=== PATIENT | male | born 1960 | race Caucasian/White ===

== ENCOUNTER 2024-10-05 11:00 | Outpatient (AMB) | payer OTHER, SELFPAY ==
--- NOTE | 2024-10-05 11:20 | MHC.OFFVIS ---
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 On he presented to [facility] and was transferred to [facility] where he underwent urgent cardiac catheterization showing severe PDA stenosis which was treated with drug-eluting stent. While he was in [place] he was diagnosed with atrial fibrillation and has been in persistent atrial fibrillation since discharge. He was started on Eliquis and metoprolol succinate 25 mg daily. He is on Plavix for the recent drug-eluting stent placement. He is saying that he was short of breath and fatigued for few weeks before he presented with ACS. When he presented with acute coronary syndrome he had chest discomfort as well as arm discomfort. He has not had any further symptoms since he left the hospital. He does get short of breath with activities and has some fatigue. I think these symptoms are linked with atrial fibrillation. He does not have any palpitations. Taking medications regularly. No bleeding concerns. He was a smoker but since the heart attack he has stopped smoking. [facility] Medical History (Updated 10/05/24 @ 12:30 by Juan Borrero MD) NSTEMI (non-ST elevated myocardial infarction) Family History (Updated 10/05/24 @ 11:28 by Mindy Meza CMA) Mother High blood pressure Paroxysmal A-fib Father No problems noted. Social History (Updated 10/05/24 @ 11:30 by Mindy Meza CMA) Alcohol intake: never Tobacco use type: Cigarette Smoked in Last 30 Days: No e-Cigarette/Vaping Use: Former Use Patient Given Instructions on How to Stop Smoking: Yes Date Education Initiated: 09/19/24 Review of Systems Const Denies chills, Denies fatigue, Denies fever(s), Denies frequent falls, Denies weakness, Denies weight gain and Denies weight loss ENT Denies dizziness Card Denies chest pain, Denies leg edema, Denies lightheadedness, Denies palpitations, Denies dyspnea, Denies dyspnea on exertion and Denies orthopnea Resp Denies cough, Denies dyspnea and Denies dyspnea on exertion GI Denies bloating and Denies change in bowel habits Musc Denies muscle weakness, Denies numbness and Denies tingling Neuro Denies dizziness, Denies frequent falls, Denies numbness, Denies tingling and Denies weakness Endo Denies fatigue and Denies palpitations Physical Exam Vital Signs: Last Vital Signs Pulse 90 10/05/24 11:23 BP 120/70 10/05/24 11:23 BMI result Body Mass Index 37.5 GENERAL APPEARANCE: in no acute distress, pleasant. NECK: no carotid bruit, no jugular venous distention. SKIN: no suspicious lesions, warm and dry. HEART: no murmurs, irregular rate and rhythm. LUNGS: clear to auscultation bilaterally. ABDOMEN: soft, nontender. EXTREMITIES: no edema. PERIPHERAL PULSES: equal. NEUROLOGIC: No gross deficits, AAO X 3 Office Procedures EKG Details: Atrial fibrillation 90 beats per minute, normal axis, QTC 477 milliseconds. [id number], Complete Assessment & Plan Assessment & Plan (1) Persistent atrial fibrillation: Code(s): I48.19 - Other persistent atrial fibrillation Category: Medical (2) NSTEMI (non-ST elevated myocardial infarction): Code(s): I21.4 - Non-ST elevation (NSTEMI) myocardial infarction Category: Medical Plan Pleasant 63 gentleman who is here for 1st office visit. September 23 he was taken for cardiac catheterization by Dr. Mireles. He had drug-eluting stents placed to the PDA. Other blood vessels did not have any significant disease. He was on aspirin and Plavix and given the fact that he had atrial fibrillation which was a new diagnosis aspirin was stopped and he was discharged on Plavix and metoprolol succinate 25 mg daily. He has stopped smoking. He has some fatigue and dyspnea with activities which is a new symptom over the last month. I think these symptoms are due to atrial fibrillation. We discussed about management of atrial fibrillation. After discussion we have decided to perform cardioversion. We will arrange it in 1 month. Increasing metoprolol succinate to 25 mg twice a day. We will continue apixaban and Plavix uninterrupted. Follow-up in 3-4 months. Thank you for allowing me to participate in the care of your patient. Please feel free to contact me if you have any questions. Medications: New metoprolol succinate ER 25 mg PO BID 120 tabs 3RF Coding Level of Care Code New Pt Level 5 (99819) Diagnoses Persistent atrial fibrillation I48.19 NSTEMI (non-ST elevated myocardial infarction) I21.4 CPT Codes EKG - CPT: 88364-[id number], Complete ([id number])
[2024-10-05 11:23] VITALS: BP 120/70; PULSE 90; BMI 37.5
--- OUTSIDE RECORDS SUMMARY | 2024-10-06 01:21 | XMS_ITS | Continuity of Care Document ---
Author Organization [facility] ter Address [address] [place] [id number] Care Team Providers Care Auditing Manager Name Role Phone Brando More MD Primary Care Physician [phone] [id number] Date(s): 09/23/24 - 09/24/[address] [address] Discharge Disposition: A-D/C Home Attending Physician: Sofi Brush MD Admitting Physician: Boaz Duvall DO Referring Physician: Boaz Duvall DO Encounter Type: Disch IP Allergies, Adverse Reactions, Alerts Substance Criticality Severity Reaction Reaction Severity Status Bee Stings Active [place] Active Onions Active Medications apixaban 5 mg oral tablet = 5 mg, By Mouth, 2 times a day, # 60 tablet, 0 Refills, Maintenance, 09/24/24 8:03:00 AM EST, Tablet, [facility], Partial fill upon patient request if the prescription is for a schedule II opioid drug., 186, cm, 09/23/24 19:57:00 EST, Height, 127.2, kg, 09/23/24 14:31:00 EST, Dry Weight Start Date: 09/24/24 Status: Ordered Quantity: 60.0 Unit: tablet Repeat number: 1 atorvastatin 80 mg oral tablet = 80 mg, By Mouth, Daily at bedtime, # 30 tablet, 0 Refills, Maintenance, 09/24/24 10:50:00 AM EST,Tablet, [facility], Partial fill upon patient request if the prescription is for a schedule II opioid drug., 186, cm, 09/23/24 19:57:00 EST, Height, 127.2, kg, 09/23/24 14:31:00 EST, Dry Weight Start Date: 09/24/24 Status: Ordered Quantity: 30.0 Unit: tablet Repeat number: 1 clopidogrel 75 mg oral tablet 75 mg, By Mouth, Daily, # 30 each, Refills 3, Tot. Refills 3, Maintenance, 09/24/24 8:04:00 AM EST,Route to Pharmacy Electronically, [facility], Partial fill upon patient request if the prescription is for a schedule II opioid drug., 186, cm, 09/23/24 19:57:00 EST, Height, 127.2, kg,09/23/24 14:31:00 EST, Dry Weight Start Date: 09/24/24 Status: Ordered Quantity: 30.0 Unit: each Repeat number: 4 Lexapro 20 mg oral tablet 20 mg, 1, tablet, By Mouth, Daily, 0 Refills Start Date: 01/09/09 Status: Ordered Repeat number: 1 Lisinopril = 20 mg, By Mouth, Daily, 0 Refills, Maintenance, 09/23/24 2:45:00 PM EST, Partial fill upon patient request if the prescription is for a schedule II opioid drug. Start Date: 09/23/24 Status: Ordered Repeat number: 1 lisinopril 20 mg oral tablet 20 mg, Tablet, By Mouth, 09/24/24 9:00:00 AM EST Start Date: 09/24/24 Stop Date: 09/24/24 Status: Completed Repeat number: 1 Metoprolol Succinate ER 25 mg oral tablet, extended release 25 mg, XL Tablet, By Mouth, 09/24/24 9:00:00 AM EST Start Date: 09/24/24 Stop Date: 09/24/24 Status: Completed Repeat number: 1 Metoprolol Succinate ER 25 mg oral tablet, extended release 25 mg, By Mouth, Daily, # 30 each, Refills 0, Tot. Refills 0, Maintenance, 09/24/24 8:04:00 AM EST,Route to Pharmacy Electronically, [facility], Partial fill upon patient request if the prescription is for a schedule II opioid drug., 186, cm, 09/23/24 19:57:00 EST, Height, 127.2, kg,09/23/24 14:31:00 EST, Dry Weight Start Date: 09/24/24 Status: Ordered Quantity: 30.0 Unit: each Repeat number: 1 Nicotine 2 mg gum 1 each = 2 mg, Chew, Every 2 hours, PRN as needed for smoking cessation, # 160 each, 1 Refills, Maintenance, 09/24/24 11:11:00 AM EST, Gum, [facility], Partial fill upon patient requestif the prescription is for a schedule II opioid drug., 186, cm, 09/23/24 19:57:00 EST, Height, 127.2, kg, 09/23/24 14:31:00 EST, Dry Weight Start Date: 09/24/24 Status: Ordered Quantity: 160.0 Unit: each Repeat number: 2 nicotine 21 mg/24 hr transdermal film, extended release 1 patch, Topically, Daily, # 30 patch, 0 Refills, Maintenance, 09/24/24 11:11:00 AM EST, Patch, [facility], Partial fill upon patient request if the prescription is for a schedule II opioid drug., 1 patch Topically Daily, 186, cm, 09/23/24 19:57:00 EST, Height, 127.2, kg, 09/23/24 14:31:00 EST, Dry Weight Start Date: 09/24/24 Status: Ordered Quantity: 30.0 Unit: patch Repeat number: 1 Silvadene 1% cream See Instructions, Topically 2 times a day, # 400 Gm, 0 Refills Start Date: 01/09/09 Status: Ordered Quantity: 400.0 Unit: g Repeat number: 1 Problem List Condition Confirmation Course Effective Dates Status Health St [facility] Informant Burn of lower leg Confirmed Active HYPERTENSION Confirmed Active Obese class II Confirmed Active Vital Signs Most recent to oldest [Reference Range]: 1 2 3 Height 186 cm (09/23/24 7:57 PM) 186 cm (09/23/24 2:31 PM) Weight 129.4 kg (09/23/24 2:31 PM) Oxygen Saturation [94-100 %] 96 % (09/24/24 7:00 AM) 96 % (09/24/24 3:00 AM) 96 % (09/23/24 7:57 PM) Pulse Rate [55-90 bpm] 83 bpm (09/24/24 8:55 AM) 68 bpm (09/24/24 7:00 AM) 78 bpm (09/24/24 3:00 AM) Body Mass Index [18.5-24.99 kg/m2] 37.4 kg/m2 *>HHI* (09/23/24 2:31 PM) Blood Pressure [90-138/55-84 mm Hg] 150/95mm Hg *H* (09/24/24 8:56 AM) 150/95mm Hg *H* (09/24/24 8:55 AM) 160/109mm Hg *H* (09/24/24 7:00 AM) Respiratory Rate [16-30 br/min] 18 br/min (09/24/24 7:00 AM) 18 br/min (09/24/24 3:00 AM) 18 br/min (09/23/24 7:57 PM) Temperature [96.8-100.4 DegF] 98.0 DegF (09/24/24 7:00 AM) 98.1 DegF (09/24/24 3:00 AM) 98.8 DegF (09/23/24 7:57 PM) Mode of Delivery (Oxygen) Room air (09/24/24 7:00 AM) Room air (09/24/24 3:00 AM) Room air (09/23/24 7:57 PM) Blood pressure sites Arm, right (09/24/24 7:00 AM) Arm, left (09/24/24 3:00 AM) Arm, left (09/23/24 7:57 PM) Temperature Route Oral (09/24/24 7:00 AM) Oral (09/24/24 3:00 AM) Oral (09/23/24 7:57 PM) Dry Weight 127.2 kg (09/23/24 2:31 PM) History and physical note * Event Display: History and Physical Hospital Authored Date: * Gracy Ha MD: MODIFY, PERFORM Event Display: History and Physical Hospital Authored Date: Patient: ??TRISTAN GLAGSOW ? Age:??63 Years?Sex:??Male?:??1960?? Chief Complaint/Reason for Consultation Tx from [facility] for NSTEMI History of Present Illness Date of exam: 09/23/2024 ?? 63-year-old male with past medical history significant for obesity with a BMI of 38, hypertension, tobacco use,??atrial fibrillation, presented to [facility] with 2 episodes of chest pain within 24 hours of arrival, both episodes occurring at rest, associated with chest heaviness, shortness of breath, bilateral arm numbness, discomfort in his neck, headache and nausea.?? No palpitations, diaphoresis, syncopal events.?? This episode lasted 35 to 45 minutes.?? Completely resolved with 1 tab of sublingual nitroglycerin in the ED.?? Blood pressure noted to be elevated at 152/95.?? EKG showing atrial fibrillation, no acute ST-T changes.?? Got 1 mg/kg subcutaneous Lovenox.?? Initial troponin 60, subsequently up to 222.?? Had another episode of chest pain while inpatient which resolved with 2 tablets of sublingual nitroglycerin.?? [place] [facility] [place] transferred here for further management.?? Also received metoprolol 50 mg and atorvastatin 80 mg.?? Lisinopril continued. ?? Was taken to [facility] upon arrival here. Cath summary below: Coronary angiography shows severe ostial?right PDA stenosis. There was minimal disease elsewhere. We treated this?with IVUS guidance using a drug- eluting stent. We are satisfied with the ??result at the end. ?Interventional Recommendations ??1. Aspirin 81 mg daily. Stop this when the DOAC is started ??2. Plavix 75 mg daily for 1 year ??3. Start DOAC tonight or tomorrow morning ??4. Risk factor management per guidelines for established coronary artery ??disease? Seen and examined pt post cath. Tolerated procedure well, resting comfortably. Denies CP, SOB, n/v. rest of ROS negative Review of Systems Constitutional: No fevers, chills HEENT: No headache, rhinorrhea, difficulty swallowing, blurry vision Cardiovascular: chest pain Respiratory: No shortness of breath, no cough, no wheezing GI: No nausea, no vomiting, no abdominal pain, no change in bowel habits Neuro: No weakness, numbness, tingling in extremities Psych: No acute behavioral changes Muscular skeletal: No joint or muscle pain Endocrine: No recent weight loss or gain, no change in appetite : No dysuria or hematuria Objective Vital Signs?? Temperature: 96.9 DegF (09/23/24 14:31:00) Temperature Route: Temporal (09/23/24 14:31:00) Pulse Rate: 74 bpm (09/23/24 14:31:00) Respiratory Rate: 18 br/min (09/23/24 14:31:00) Systolic Blood Pressure: 136 mm Hg (09/23/24 14:31:00) Diastolic Blood Pressure:??89 mm Hg??High (09/23/24 14:31:00) Blood pressure sites: Arm, right (09/23/24 14:31:00) Mean Arterial Pressure: 105 mm Hg (09/23/24 14:31:00) Pulse Pressure: 47 mm Hg (09/23/24 14:31:00) Oxygen Saturation: 95 % (09/23/24 14:31:00) Mode of Delivery (Oxygen): Room air (09/23/24 14:31:00) Early Warning Score: 4 (09/23/24 14:44:52) ? Physical Exam General: NAD HEENT: Atraumatic, normocephalic, EOMI, PERRLA, moist mucous membranes Neck: Supple Cardiac: S1, S2 heard, no murmurs Pulmonary: Clear to auscultation bilaterally, good bilateral air entry Abdomen: Soft, nontender, nondistended, bowel sounds heard Extremities: No cyanosis, clubbing or edema Skin: No rash Neuro: No focal deficits, awake and alert Psych: Mood and affect appropriate for encounter Assessment/Plan Assessment:??63-year-old male with past medical history significant for obesity with a BMI of 38, hypertension, tobacco use,??atrial fibrillation,??admitted for non-STEMI, transferred from [facility] ?? Non-STEMI (non-ST elevated myocardial infarction) (I21.4):??Presented with 2 episodes of substernal??chest??heaviness??radiating to neck associated with shortness of breath, unrelieved with sublingual nitroglycerin Initial troponin 60, subsequently up to 222 [facility] cardiology consulted and transferred here for further management ?? Underwent cardiac catheterization, showed??severe ostial?right PDA stenosis. There was minimal disease elsewhere. We treated this?with IVUS guidance using a drug-eluting stent. We are satisfiedwith the ??result at the end. ?Interventional Recommendations ??1. Aspirin 81 mg daily. Stop this when the DOAC is started ??2. Plavix 75 mg daily for 1 year ??3. Start DOAC tonight or tomorrow morning ??4. Risk factor management per guidelines for established coronary artery??disease? These orders??have been placed. ?ACEI or ARB for LVSD:??ACEI has been ordered ?? Atrial fibrillation (I48.91): Newly diagnosed.??Rate controlled. Started anticoagulation with eliquis ?? Tobacco use disorder (F17.200):??Chronic active smoker Smoking cessation counseling done for over 5 minutes,??nicotine patch ordered ?? Hypertension (I10):??Continue lisinopril Added metoprolol ?? VTE Prophylaxis:??Lovenox ?VTE Prophylaxis Assessment:??VTE Prophylaxis Ordered ?? Discharge Planning:??1 to 2 days ?? Code Status:??Full code ?Order Code Status:??Code Status Ordered ? Estimated Discharge Date 09/25/2024 ?? Histories Allergies Allergies ?(Active and Proposed Allergies Only) [place]? (Severity: Unknown severity, Onset: Unknown) Onions? (Severity: Unknown severity, Onset: Unknown) Bee Stings? (Severity: Unknown severity, Onset: Unknown) ? Past Medical History/Problem List Active Problems(3) Burn of lower leg HYPERTENSION Obese class II Atrial fibrillation ? Past Surgical History No surgery history documented. ? Social History Smokes up to 10 cigarettes a day,??nonalcoholic, denies use of other recreational drugs ? Family History Heart disease??and stroke in??mother Colorectal cancer in brother ? Medications Home Medications Escitalopram (Lexapro 20 mg oral tablet)?20?Milligram?1?tab(s)?By Mouth?Daily Lisinopril?20?Milligram?By Mouth?Daily Silver SulfADIAZINE Topical (Silvadene 1% cream)?See Instructions?Topically 2 times a day ? Results Recent Labs COAG POC ACT-LR 303.0 seconds ()?? 09/23/2024 17:20 ? Image ?12 Lead ECG??09/23/2024 16:40 by Babar Benson MD ?12 Lead ECG??09/23/2024 16:40 by Babar Benson MD ? Consult ?Cardiology Consult Note??09/23/2024 17:53 by Raj Piedra MD ? EKG study * Event Display: ECG 12-Lead Authored Date: Please click on pdf link to open report * Event Display: ECG 12-Lead Authored Date: Ventricular Rate: 66 BPM QRS Duration: 106 ms Q-T Interval: 422 ms QTC Calculation(Bazett): 442 ms R Payson: -27 degrees T Payson: 24 degrees Atrial fibrillation Abnormal ECG When compared with ECG of 23-Sep-2024 16:40, No significant change Confirmed by BABAR BENSON MD ([id number]) on 09/23/2024 5:25:08 PM [place]: BABAR BENSON MD * Event Display: ECG 12-Lead Authored Date: Please click on pdf link to open report * Event Display: ECG 12-Lead Authored Date: Ventricular Rate: 71 BPM QRS Duration: 106 ms Q-T Interval: 420 ms QTC Calculation(Bazett): 456 ms R [place]: -30 degrees T [place]: 37 degrees Atrial fibrillation Left axis deviation Abnormal ECG No previous ECGs available Confirmed by ABBAR BENSON MD ([id number]) on 09/23/2024 5:27:31 PM [place] * Bernie Carson: PERFORM Event Display: Progress Note Hospital Authored Date: [id number] Patient: ??PEE, TRISTAN ? Age:??63 Years?Sex:??Male?:??1960?? History of Present Illness/Interval History patient seen and evaluated this AM?? No c/o Cp seen by cardiac rehab?? c/o TURK - felt as though similar TURK when he gets congested/Allergies?? Tele: AF rate controlled.?? Physical Exam Vitals & Measurements T:??98.0?F?? HR:??83??(Peripheral)?? RR:??18?? BP:??150/95?? SpO2:??96%?? HT:??186??cm?? WT:??129.4??kg?? BMI:??37.4?? Weight lb/oz: 285 lb 4 oz General: Well appearing, NAD HEENT: anicteric sclera, ??JVP <10 cm, no HJR Cardio: RRR. Normal S1 and S2. No murmurs or rubs appreciated. Resp: CTA bilaterally, no wheezing, rhonchi, or crackles. Abd: Abdomen soft and nontender to palpation. +BS Ext: No peripheral edema. Warm and well perfused. Radial site no hematoma?? Neuro: Alert and oriented. No focal weakness appreciated. 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 He underwent cath with PCI to RPDA, LV gram with LVEF 55%.?? Also noted to be in a new AF rate controlled.? Stable from CV perspective.?? He is requesting follow up with [facility].?? ECHO can be done as OP as he has LVgram??done during the cath.? NSTEMI PCI to PLV?? New Dx AF ? -encourage smoking cessation?? -cardiac rehab?? -Toprol XL 25mg Po daily?? -Lipitor 80 mg Po daily?? -Eliquis 5mg PO BID?? -Plavix 75mg PO daily?? -Continue Lisinopril?? -Consider DCCV after 4 weeks of uninterrupted Ac?? -FU with [facility]??Cardiology in 4-6 weeks. -ECHO as outpatient - will arrange? Problem List/Past Medical History Ongoing Burn of lower leg HYPERTENSION Obese class II Procedure/Surgical History No qualifying data available. Hospital Medications Medications (19) Active SCHEDULED: (9) Apixaban 5 mg Tablet (Apixaban Tablet) ??5 mg, By Mouth, 2 times a day Atorvastatin 80 mg Tablet (atorvastatin 80 mg oral tablet) ??80 mg, By Mouth, Daily at bedtime Clopidogrel 75 mg Tablet (Clopidogrel Tablet) ??75 mg, By Mouth, Daily Fluzone Trivalent (6mo ??? 64yr) Inj 0.5mL (Influenza, Trivalent Vaccine) ??0.5 mL, Intramuscular, Once Lisinopril 20 mg Tablet (lisinopril 20 mg oral tablet) ??20 mg, By Mouth, Daily Metoprolol 25 mg XL Tablet (Metoprolol Succinate ER 25 mg oral tablet, extended release) ??25 mg, By Mouth, Daily NaCl 0.9% Flush 3ml (NaCL 0.9% Flush) ??3 mL, IV Push, Every 8 hours Nicotine 21 mg / 24 hour Patch (Nicotine Topical) ??21 mg, Topically, Daily Remove Patch (Remove ??Patch) ??1 each, Topically, Daily CONTINUOUS: (1) NaCL 0.9% (1000 mL) Cont IV 1,000 mL (Sodium Chloride 0.9% Normalized 1,000 mL) ??1,000 mL, IV Infusion, 350 mL/hr PRN: (9) Acetaminophen 325 mg Tablet (Acetaminophen Tablet) ??650 mg, By Mouth, Every 4 hours Dextromethorphan-Guaifenesin 20 mg-200 mg/10 mL Liqu UD (Robitussin DM Liquid) ??10 mL, By Mouth, Every 4 hours Docusate Sodium 100 mg Capsule (Docusate Sodium Capsule) ??100 mg 1 capsule, By Mouth, 2 times a day Melatonin 3 mg Tablet (Melatonin Tablet) ??3 mg, By Mouth, Daily at bedtime NaCl 0.9% Flush 3ml (NaCL 0.9% Flush) ??3 mL, IV Push, Every 8 hours Nitroglycerin 0.4 mg Sublingual Tablet (nitroglycerin 0.4 mg sublingual tablet) ??0.4 mg, Sublingual, Every 5 minutes Polyethylene Glycol 17 Gm Powder (MiraLax Powder) ??17 Gm 1 pack/packet, By Mouth, Daily Senna Tablet ??8.6 mg 1 tablet, By Mouth, 2 times a day Simethicone 80 mg Chewable Tablet (Simethicone Tablet) ??80 mg, Chew, 3 times a day Follow-Up Appointments Added Follow Up ?Time Frame ?Comments [facility]iac Rehabilitation?1 to 2 weeks?An email has been sent to them with your contact information.?? Your Tool Lapper Hand who will follow up withyou is the ordering MD. Their office can work the Cardiac Rehab. Lab Results Cardiology Labs WBC: 9 k/mm3 (09/24/24) RBC:??4.46 m/mm3??Low (09/24/24) Hgb: 14.4 Gm/dL (09/24/24) Hct: 43.5 % (09/24/24) MCV:??97.5 femtoliters??High (09/24/24) MCH: 32.3 pg (09/24/24) MCHC: 33.1 Gm/dL (09/24/24) Platelet Count: 212 k/mm3 (09/24/24) RDW-SD:??48 femtoliters??High (09/24/24) Nucleated RBC (Automated): 0 #/100 WBC'S (09/24/24) Abs. Neut: 4.4 k/mm3 (09/23/24) Abs. Lymph:??3.5 k/mm3??High (09/23/24) Abs. [place]: 0.7 k/mm3 (09/23/24) Abs. Eo: 0.3 k/mm3 (09/23/24) Abs. Baso: 0.1 k/mm3 (09/23/24) Neut %: 49 % (09/23/24) [place] %: 7.7 % (09/23/24) Eos %: 2.8 % (09/23/24) Baso %: 0.7 % (09/23/24) Imm Gran: 0.2 % (09/23/24) Abs. Imm Gran: 0 k/mm3 (09/23/24) Sodium: 138 mmol/L (09/24/24) Potassium: 4.3 mmol/L (09/24/24) Chloride: 105 mmol/L (09/24/24) Bicarbonate Level: 22 mmol/L (09/24/24) Glucose Level: 83 mg/dL (09/23/24) Hemoglobin A1C (Monitoring):??5.7 %??High (09/24/24) BUN: 17 mg/dL (09/24/24) Creatinine-Blood: 0.88 mg/dL (09/24/24) Calcium: 8.7 mg/dL (09/23/24) Cholesterol: 142 mg/dL (09/24/24) Triglycerides:??181 mg/dL??High (09/24/24) HDL Cholesterol:??21 mg/dL??Low (09/24/24) LDL Cholesterol: 85 mg/dL (09/24/24) Non HDL Cholesterol: 121 mg/dL (09/24/24) TSH: 2.36 uIU/mL (09/24/24) Diagnostic Impression ECG ECG 12-Lead ?? 16:40:59 Please click on pdf link to open report ?? Signed By: Kelley SILVEIRA, Babar Fernandez ?? ECG 12-Lead ?? 16:40:59 Ventricular Rate: 66 BPM QRS Duration: 106 ms Q-T Interval: 422 ms QTC Calculation(Bazett): 442 ms R Payson: -27 degrees T Payson: 24 degrees Atrial fibrillation Abnormal ECG When compared with ECG of 23-Sep-2024 16:40, No significant change Confirmed by BABAR BENSON MD ([id number]) on 09/23/2024 5:25:08 PM ?? [place]: BABAR BENSON MD ?? Signed By: Babar Benson MD Cardiac Cath Procedure Cardiac Cath Procedure ?? 17:04:00 Conclusions ?? Interventional Summary Non-ST elevation myocardial infarction Atrial fibrillation-new diagnosis ?? Right radial artery, 6 [place] slender-closed with radial band ?? Coronary angiography with left heart catheterization and left ventriculography Intravascular ultrasound of the RCA Drug-eluting stent to the ostial right PDA ?? Right dominant coronary circulation Severe ostial RPDA stenosis, culprit lesion-status post IVUS guided PCI with an Jah 2.5 x 34 mm drug-eluting stent (MSA 5.4 mm2, distal MLA 5.1 mm Minimal LAD disease Minimal left circumflex disease ?? LVEDP 13 mmHg, no pullback gradient across aortic valve LVEF 55-60%, no obvious regional wall motion abnormalities ?? The patient presents with non-ST elevation myocardial infarction and a new diagnosis of atrial fibrillation. Coronary angiography shows severe ostial right PDA stenosis. There was minimal disease elsewhere. We treated this with IVUS guidance using a drug-eluting stent. We are satisfied with the result at the end. ?? Interventional Recommendations 1. Aspirin 81 mg daily. Stop this when the DOAC is started 2. Plavix 75 mg daily for 1 year 3. Start DOAC tonight or tomorrow morning 4. Risk factor management per guidelines for established coronary artery disease ?? Signatures ?? Signed By: Chi SILVEIRA, Edi Kim RN, Anay: PERFORM, SIGN, VERIFY Event Display: Progress Note Hospital Authored Date: Patient: TRISTAN GLASGOW [facility]: [id number] Age: 63 years Sex: Male : 1960 Associated Diagnoses: None Author: Judy THOMPSON, Anay Findings Problem Related to Alteration in Cardiac Function (new) : Alteration in Cardiac Function/new 09/24/2024 6:00 EST Alteration in Cardiac Status Related to ACS Goals & Outcomes, Cardiac Status Pt will resume/maintain adequate cardiac output, Pt will resume/maintain adequate hemodynamic status, Pt will resume/maintain adequate respiratory function, Pt will resume/maintain intact neuro function, Pt will maintain adequate GI/ function appropriate for pt, Pt will maintain adequate nutrition status, Pt/caregiver will state understanding of diagnosis, Pt/caregiver will state strategies to reduce risk factors Cardiac Interventions Implemented Assess/monitor cardiac status, Assess/monitor neuro status, Assess/monitor respiratory status, Call/Report variances in ECG to provider, Document & Monitor O2 Sats; Administer O2 as ordered, Ensure adequate caloric intake, If no bowel movement in 3 days activate bowel regime, Monitor & document daily weight, Obtain 12 Lead ECG and CXR as ordered, Prep pt for treatments & procedures, Teach/encourage deep breath & cough exercises, Teach/encourage use of incentive spirometer, Team conversation regarding appropriate level of care, Use adjunctive therapies per Standards of Practice Goals/Interventions, Cardiac Yes Cardiac, Problem Start 09/24/2024 6:30 Reviewed Plan with, Cardiac Status Patient Patient Progression, Cardiac Status Plan Initiation . Nursing Data Vital Signs : VITAL SIGNS SECTION 09/24/2024 3:00 EST Temperature 98.1 DegF Temperature Route Oral Pulse Rate 78 bpm Respiratory Rate 18 br/min Systolic Blood Pressure 134 mm Hg Diastolic Blood Pressure 84 mm Hg Blood pressure sites Arm, left Pulse Pressure 50 mm Hg Oxygen Saturation 96 % Mode of Delivery (Oxygen) Room air . Narrative/Incidental Pt A&Ox3. Calm and cooperative. Denied CP, SOB, palpitations and lightheadedness. Air was takenout from TR band on right wrist succesfully around 2200. No signs of bleeding or hematoma. +2 radial pulses. Applied dressing. Dressing remained clean, dry, and intact. Ambulated independently in theroom. Afib controlled on tele.. * Jsosie Lennon RN: PERFORM, SIGN, VERIFY Event Display: Progress Note Hospital Authored Date: [id number] Patient: TRISTAN GLASGOW Age: 63 years Sex: Male : 1960 Associated Diagnoses: None Author: Jossie Lennon RN Findings Nursing Data Vital Signs : VITAL SIGNS SECTION 09/23/2024 14:31 EST Temperature 96.9 DegF Temperature Route Temporal Pulse Rate 74 bpm Respiratory Rate 18 br/min Systolic Blood Pressure 136 mm Hg Diastolic Blood Pressure 89 mm Hg H Blood pressure sites Arm, right Mean Arterial Pressure 105 mm Hg Pulse Pressure 47 mm Hg Oxygen Saturation 95 % Mode of Delivery (Oxygen) Room air . Evaluation tx from [facility]. arrived to [place] [address] via ambulance at approx 1430 in stable condition. oriented to room, call hansen and bed mechanics. vss, afib on telemetry with controlled rates. denies further complaints of cp. s/p cardiac catheterization right radial approach, tr band in place. no evidence bleeding/ oozing/ hematoma. vs obtained post procedure per protocol. ivf nacl infusing @ 350ml/h per orders for a total of four hours. pt ambulatory without device at baseline. will continue to monitor tele, labs, urine output, weights, vs.. . Note * Evelyn Raymundo RN: PERFORM, SIGN, VERIFY Event Display: Cardiac Rehab Note Authored Date: Patient: TRISTAN GLASGOW Age: 63 years Sex: Male : 1960 Associated Diagnoses: None Author: Evelyn Raymundo RN Diagnosis Cardiac Rehab Diagnosis: Non-STEMI (non-ST elevated myocardial infarction). Pre-exercise Vitals Vital Signs: 80 HR, 150/95 BP Sitting. Pre-exercise Physical Examination Neurologic: alert & oriented. Cardiovascular: heart rate irregular (Afib). Lungs: Normal I:E. Activity Symptoms with Cardiac Rehab Symptoms: No exertional symptoms. Activity Transfers: independent. Ambulate: distance ambulated 450 feet. Assistive Devices Assistive Device: None. Compliance problems: Compliance problems: diet, smoking cessation. . Post-exercise Vitals Vital Signs: 117 HR, 154/90 BP Sitting. Post-exercise Physical Examination Cardiovascular: heart rate irregular. Lungs: Normal I:E. Patient Education Education: Patient alone, Written material included, Post procedure guidelines, Stent card reviewed. Education topic Teachback comprehension 75% Topic: Pathophysiology, Lipid management, Medication education, Smoking cessation, Role of exercise, Home activity guidelines/limits, Hypertension. Reinforcement needed: Medication education. Recommendation and Plan Ambulate: 3-4 times/day. Outpatient follow up recommended: [facility], in 2 weeks. Cardiac Rehab: Will sign off at this time. * Jossie Lennon RN: PERFORM Event Display: Discharge/Transfer Note Hospital Authored Date: [id number] Nursing Discharge Note Entered On: 09/24/2024 13:55 EST Performed On: 09/24/2024 13:55 EST by Jossie Lennon RN Nursing Discharge Note 2 Discharge Time : 09/24/2024 13:15 EST Discharge Level of Care at Discharge : Home/Retirement/Foster Care Patient Left Unit Via : Ambulatory Patient Accompanied Off Unit with : Responsible adult DC Instructions Provided & Signed by Pt : Yes Patient Understands D/C Instructions : Yes Patient Instructions Discharge Signed : Yes Did Pt have Specialty Bed or Wound Vac : No Jossie Lennon RN - 09/24/2024 13:55 EST * Chaparro Reid MD: PERFORM, MODIFY Event Display: Discharge/Transfer Note Hospital Authored Date: [id number] Patient: ??TRISTAN GLASGOW ? Age:??63 Years?Sex:??Male?:??1960?? Patient Information Discharge Location: Primary Care Physician: Brando More MD Admit Date/Time: 09/23/2024 14:19 Discharge Disposition Discharge Disposition: Home: No Services Discharge Diagnosis Non-STEMI (non-ST elevated myocardial infarction) (I21.4) Hypertension (I10) Tobacco use disorder (F17.200) Atrial fibrillation (I48.91) _ Discharge Medications apixaban (apixaban 5 mg oral tablet)?5?Milligram?By Mouth?2 times a day Atorvastatin (atorvastatin 80 mg oral tablet)?80?Milligram?By Mouth?Daily at bedtime Clopidogrel (clopidogrel 75 mg oral tablet)?75?Milligram?By Mouth?Daily Escitalopram (Lexapro 20 mg oral tablet)?20?Milligram?1?tab(s)?By Mouth?Daily Lisinopril?20?Milligram?By Mouth?Daily Metoprolol (Metoprolol Succinate ER 25 mg oral tablet, extended release)?25?Milligram?By Mouth?Daily Nicotine (nicotine 21 mg/24 hr transdermal film, extended release)?1?patch(es)?Topically?Daily Nicotine (Nicotine 2 mg gum)?1?Each?2?Milligram?Chew?Every 2 hours?as needed?as needed for smoking cessation Silver SulfADIAZINE Topical (Silvadene 1% cream)?See Instructions?Topically 2 times a day ? Medications Started Apixaban Atorvastatin Clopidogrel Metoprolol Nicotine Patch Nicotine gum Medications Discontinued - Doses Changed - Allergies Allergies ?(Active and Proposed Allergies Only) [place]? (Severity: Unknown severity, Onset: Unknown) Onions? (Severity: Unknown severity, Onset: Unknown) Bee Stings? (Severity: Unknown severity, Onset: Unknown) ? PCP Follow-Up/Heads-Up Please ensure the following: ??? Follow-up with outpatient cardiology ??? Please ensure??patient??remains compliant with apixaban??and??Plavix ?Patient also found to have new onset atrial fibrillation, started on??apixaban and metoprolol for rate control Hospital Course 63-year-old male with past medical history significant for obesity with a BMI of 38, hypertension, tobacco use,??atrial fibrillation, presented to [facility] with 2 episodes of chest pain within 24 hours of arrival, both episodes occurring at rest, associated with chest heaviness, shortness of breath, bilateral arm numbness, discomfort in his neck, headache and nausea. He is an avid weightlifter, active - plays basketball daily, presented to the hospital with Cp??ruling in for [place].?? He underwent cath with PCI to RPDA, LV gram with LVEF 55%.?? Also noted to be in a new AF rate controlled Objective ?? Non-STEMI (non-ST elevated myocardial infarction) (I21.4):??Presented with 2 episodes of substernal??chest??heaviness??radiating to neck associated with shortness of breath, unrelieved with sublingual nitroglycerin Initial troponin 60, subsequently up to [facility] cardiology consulted and transferred here for further management ?? Underwent cardiac catheterization, showed??severe ostial?right PDA stenosis. There was minimal disease elsewhere. We treated this?with IVUS guidance using a drug-eluting stent. We are satisfiedwith the ??result at the end. ?-encourage smoking cessation?? -cardiac rehab?? -Toprol XL 25mg Po daily?? -Lipitor 80 mg Po daily?? -Eliquis 5mg PO BID?? -Plavix 75mg PO daily?? -Continue Lisinopril?? -Consider DCCV after 4 weeks of uninterrupted Ac?? -FU with [facility]??Cardiology in 4-6 weeks. -ECHO as outpatient - cardiology will arrange? Atrial fibrillation (I48.91): Newly diagnosed.??Rate controlled. Started anticoagulation with eliquis ?? Tobacco use disorder (F17.200):??Chronic active smoker Smoking cessation counseling done for over 5 minutes,??nicotine patch ordered ?? Hypertension (I10):??Continue lisinopril Added metoprolol ? Vital Signs?? Temperature: 98 DegF (09/24/24 07:00:00) Temperature Route: Oral (09/24/24 07:00:00) Pulse Rate: 83 bpm (09/24/24 08:55:00) Heart Rate Monitored: 69 bpm (09/23/24 18:15:43) Respiratory Rate: 18 br/min (09/24/24 07:00:00) Systolic Blood Pressure:??150 mm Hg??High (09/24/24 08:56:00) Diastolic Blood Pressure:??95 mm Hg??High (09/24/24 08:56:00) Blood pressure sites: Arm, right (09/24/24 07:00:00) Mean Arterial Pressure: 109 mm Hg (09/23/24 19:57:00) Pulse Pressure: 50 mm Hg (09/24/24 03:00:00) Oxygen Saturation: 96 % (09/24/24 07:00:00) Mode of Delivery (Oxygen): Room air (09/24/24 07:00:00) Early Warning Score: 0 (09/24/24 09:13:04) Early Warning Score: 0 (09/24/24 09:13:04) ? . Physical Exam General: NAD HEENT: Atraumatic, normocephalic, EOMI, PERRLA, moist mucous membranes Neck: Supple Cardiac: S1, S2 heard, no murmurs Pulmonary: Clear to auscultation bilaterally, good bilateral air entry Abdomen: Soft, nontender, nondistended, bowel sounds heard Extremities: No cyanosis, clubbing or edema Skin: No rash Neuro: No focal deficits, awake and alert Psych: Mood and affect appropriate for encounter Consultants Edi Mireles Pending Results No Pending Results Follow-Up Appointments Added Follow Up ?Time Frame ?Comments [facility] Cardiac Rehabilitation?1 to 2 weeks?An email has been sent to them with your contact information.?? Your Tool Lapper Hand who will follow up withsofia is the ordering MD. Their office can work the Cardiac Rehab. Patient Instructions Please ensure the following: ?You are hospitalized due to a heart attack for which you received a stent ??? To keep the stent open, you will need to continue taking Plavix daily ??? You were also found to have atrial fibrillation??on arrival??which is an abnormal heart rhythm and had been prescribed Eliquis for stroke prevention in addition to??metoprolol which will help with your heart rates ??? Will be important to follow-up with both your primary care physician and sql server architect ??? If you continue to experience chest pain, please come to the emergency department Results Discharge Labs BLOOD COUNT & DIFF WBC 9.0 k/mm3 ()?? 09/24/2024 01:56 RBC 4.46 m/mm3 (Low)?? 09/24/2024 01:56 Hgb 14.4 Gm/dL ()?? 09/24/2024 01:56 Hct 43.5 % ()?? 09/24/2024 01:56 MCV 97.5 femtoliters (High)?? 09/24/2024 01:56 MCH 32.3 pg ()?? 09/24/2024 01:56 MCHC 33.1 Gm/dL ()?? 09/24/2024 01:56 Platelet Count 212 k/mm3 ()?? 09/24/2024 01:56 RDW-SD 48.0 femtoliters (High)?? 09/24/2024 01:56 MPV 9.2 femtoliters (Low)?? 09/24/2024 01:56 Nucleated RBC (Automated) 0.0 #/100 WBC'S ()?? 09/24/2024 01:56 Abs. NRBC 0.0 k/mm3 ()?? 09/24/2024 01:56 Abs. Neut 4.4 k/mm3 ()?? 09/23/2024 19:34 Abs. Lymph 3.5 k/mm3 (High)?? 09/23/2024 19:34 Abs. [place] 0.7 k/mm3 ()?? 09/23/2024 19:34 Abs. Eo 0.3 k/mm3 ()?? 09/23/2024 19:34 Abs. Baso 0.1 k/mm3 ()?? 09/23/2024 19:34 Neut % 49.0 % ()?? 09/23/2024 19:34 Lymph % 39.6 % ()?? 09/23/2024 19:34 [place] % 7.7 % ()?? 09/23/2024 19:34 Eos % 2.8 % ()?? 09/23/2024 19:34 Baso % 0.7 % ()?? 09/23/2024 19:34 Imm Gran 0.2 % ()?? 09/23/2024 19:34 Abs. Imm Gran 0.0 k/mm3 ()?? 09/23/2024 19:34 ?? CARDIAC High Sensitivity Troponin (HSTnT) 50 ng/L (High)?? 09/23/2024 19:34 ? CHEM GENERAL Sodium 138 mmol/L ()?? 09/24/2024 01:59 Potassium 4.3 mmol/L ()?? 09/24/2024 01:59 Chloride 105 mmol/L ()?? 09/24/2024 01:59 Bicarbonate Level 22 mmol/L ()?? 09/24/2024 01:59 Anion Gap 11 ()?? 09/24/2024 01:59 Glucose Level 83 mg/dL ()?? 09/23/2024 19:34 Hemoglobin A1C (Monitoring) 5.7 % (High)?? 09/24/2024 01:56 BUN 17 mg/dL ()?? 09/24/2024 01:59 Creatinine-Blood 0.88 mg/dL ()?? 09/24/2024 01:59 Estimated GFR Creatinine 96 ML/MIN/1.73 M2 ()?? 09/24/2024 01:59 Calcium 8.7 mg/dL ()?? 09/23/2024 19:34 ? COAG POC ACT-LR 303.0 seconds ()?? 09/23/2024 17:20 ? ENDOCRINE/TUMOR MARKER TSH 2.36 uIU/mL ()?? 09/24/2024 01:59 ? LIPID STUDIES Cholesterol 142 mg/dL ()?? 09/24/2024 01:59 Triglycerides 181 mg/dL (High)?? 09/24/2024 01:59 HDL Cholesterol 21 mg/dL (Low)?? 09/24/2024 01:59 LDL Cholesterol 85 mg/dL ()?? 09/24/2024 01:59 Non HDL Cholesterol 121 mg/dL ()?? 09/24/2024 01:59 ? URINE OTHER Est Creatinine Clearance 96.47 mL/min ()?? 09/24/2024 03:04 ?* Final Report * ?? Diagnostic Cardiac Cath Cardiac Diagnostic + PCI Report ?Demographics ?Patient Name ? PEE HUDSON Gender ? Male ?Corporate ?Race ?Facility ?Room Number ?M711 ? Height ? 73.23 inches ?Date of ?1960 ? Weight ? 284.4 pounds ?Age ?63 year(s) ? BSA ?2.5 m2 ?Accession Number ? [id number] ? BMI ?37.29 kg/m2 ?Referring Physician ?Eloina Sifuentes S Date of Study ??09/23/2024 ?Ilda Frazier MD ?Derik Michaels ?Performing Physician ?? Edi Mireles MD ?Fellow ? Bradley Sexton ?Interventional ? Edi Mireles MD ??Physician ?Procedure ?? Procedure Type ?Diagnostic procedure:Coronary Angiography, LHC and Ventriculogram ?PCI procedure:Intravascular Coronary Imaging, IVUS, Stent (Drug Eluting) ?Miscellaneous:ACT ?Indications ?Indications: ??NSTEMI. ?? Current Diagnosis:NSTEMI. ?Clinical History ?? Clinical Evaluation Leading to Procedure ?- The patient's CAD presentation was assessed as: Non-STEMI. ?- The patient's anginal syndrome during the past two weeks was assessed as: ?Class IV according to the [place] Cardiovascular Society Classification ?System (CCS). ?ACC Risk Factors ?The patient risk factors include:obesity, hypercholesterolemia, hypertension ??and Current - Every day tobacco use. ?? Additional Clinical History:63M with a history of HTN, HL, smoking, new onset atrial fibrillation who presents with NSTEMI. ?Procedure Data ?? Procedure Date Date: 09/23/2024Start: 17:04End: 18:00 ?? The procedure was explained in detail to the patient. Risks, complications and alternative treatments were reviewed. Written consent was obtained. ?? Entry Locations ?- Retrograde Percutaneous access was performed through the Right Radial ?artery. A 6 Fr sheath was inserted. ?? Procedure Medications ?- Versed (Midazolam) I.V. 1 mg. ?- Fentanyl I.V. 50 mcg. ?- Aspirin P.O. 324 mg. ?- Lidocaine 2% S.C. Right Wrist 5 ml. ?- Versed (Midazolam) I.V. 1 mg. ?- Fentanyl I.V. 50 mcg. ?- Heparin I.V. 64845 units. ?- Nitroglycerin I.A. 200 mcg. ?- 0.9NS I.V. bolus 500 ml. ?- Nitroglycerin I.C. 200 mcg. ?- Clopidogrel P.O. 600 mg. ?- Nitroglycerin I.C. 200 mcg. ?- Versed (Midazolam) I.V. 1 mg. ?- Fentanyl I.V. 50 mcg. ?? Sedation: My in-service moderate sedation time was from 1701 to 1757. Refer to the procedural log for detailed chronological information. ?? Contrast Material ?- Isovue 300 75 ml ?? Diagnostic Catheters ?- ADxTerity 5F 100 cm JL 3.5was used for: Left coronary angiography. ?- ADxTerity 5F 100 cm JR 4.0was used for: Left heart catheterization. ?- ADxTerity 5F 100 cm JR 4.0was used for: Right coronary angiography. ?- AHeartrail III 6F 100 cm Ikari Right 1.5was used for: PCI. ?? Fluoroscopy Time: Diagnostic: 14:56 minutes. PCI: 0:00 minutes. Total: 14:56 minutes. ?? Fluoroscopy Dose: Diagnostic: 939.223 mGy. PCI: 0 mGy. Total: 939.223 mGy. ?? Dose Area Product:Diagnostic: 48461.1 mGy/cm2. PCI: 0 mGy/cm2. Total: 15336.1 mGy/cm2. ?Procedure Narrative ?We placed a 6 [place] slender sheath in right radial artery. We performed ??coronary angiography with a JL 3.5 and JR4. We crossed into the LV to obtain ??hemodynamics and perform an LV gram. ?We exchanged for an Ik[place] right 1.5 guide, engage the RCA, wired the right ??PDA with a run-through, then predilated with a 2.0 x 12 mm balloon. We ??performed IVUS with an [place] eye catheter. We then stented with an [place] 2.5 ??x 34 mm drug-eluting stent. We postdilated with a 2.75 x 15 mm, then a 3.25 ??x 12 mm balloon. Final angiography showed 0% residual, ILIANA-3 flow, no ??complications. ?We closed the arteriotomy with a radial band. ?Angiographic Findings ?Cardiac Arteries and Lesion Findings ?? LAD: ?Lesion in Mid LAD: 20% stenosis 18 mm length. ?Lesion in Prox LAD: 20% stenosis 17 mm length. ?? LCx: ?Lesion in Prox CX: 15% stenosis 15 mm length. ?? RCA: ?Lesion in R PDA: Ostial.90% stenosis . Pre procedure ILIANA III flow was ?noted. Culprit lesion. ?Pre PCI IVUS: The Plaque Composition is Fibro-fatty. ?Reference Vessel area: 5.1 mm2 ?Lesion in Prox RCA: 15% stenosis 24 mm length. ?Hemodynamics ?Condition: Rest ?O2 Consumption: Estimated: 312.50Heart Rate: 71 bpm ?? Pressures (mmHg) +-----+ + !Site !Pressure ?? ! +-----+ + !LV ?? !111 ,11 ??! +-----+ + !AO ?? !103/62 (80)! +-----+ + !LV ?? !/ ,19 ?? ! +-----+ + ?? Valve Gradients and Areas +------+----+----+----+-----+----+------+ !Valve !Peak!Mean!Area!Index!Flow!Source! +------+----+----+----+-----+----+------+ !Aortic!0 ?? ! ?! ?! ? ! ?! ?! +------+----+----+----+-----+----+------+ !Aortic!0 ?? ! ?! ?! ? ! ?! ?! +------+----+----+----+-----+----+------+ ?? Shunts ?? Oxygen Values ?O2 Consumption 312.5 ?Interventional Procedure ?? Cardiac lesions ?? RCA: ?Lesion in R PDA: Ostial.90% stenosis reduced to 0%. Pre procedure ILIANA III ?flow was noted. Post Procedure ILIANA III flow was present. The guidewire ?cross was successful.Culprit lesion. ?Pre PCI IVUS: The Plaque Composition is Fibro-fatty. ?Reference Vessel area: 5.1 mm2 ?Post PCI IVUS ?MLA (in stent):5.4 mm2 ?Stent was well apposed. ?Stent expansion: Optimal expansion. ?Devices used ?- Runthrough NS 0.014 in 180 cm Extra Floppy. Number of passes: 1. ?- Emerge 2.00 mm 12 mm RX. Diameter: 2 mm. Length: 12 mm. 1 inflation(s) ?to a max pressure of: 12 lauryn. ?- [place] Eye [place] 2.9F/3.5F 150 cm .014 in. Number of passes: 2. ?- [place]or 2.50 mm 34 mm RX. Diameter: 2.5 mm. Length: 34 mm. 1 ?inflation(s) to a max pressure of: 14 lauryn. ?- SC Euphora 2.75 mm 15 mm Rapid Exchange. Diameter: 2.75 mm. Length: 15 ?mm. 1 inflation(s) to a max pressure of: 14 lauryn. ?- SC Euphora 3.25 mm 12 mm Rapid Exchange. Diameter: 3.25 mm. Length: 12 ?mm. 2 inflation(s) to a max pressure of: 20 lauryn. ?VA ?? LV function assessed as:Normal. Ejection Fraction ?- Method: LV gram. EF%: 55. ?LVA Segment Contractility ?1 - Normal ? 3 - Mild ?5 - Severe ?7 - Dyskinesis ??hypokinesis ? hypokinesis ?2 - Hypokinesis ??4 - Moderate ?6 - Akinesis ?8 - Aneurysm ??hypokinesis ?Conclusions ?Interventional Summary ??Non-ST elevation myocardial infarction ??Atrial fibrillation-new diagnosis ?Right radial artery, 6 [place] slender-closed with radial band ?Coronary angiography with left heart catheterization and left ??ventriculography ??Intravascular ultrasound of the RCA ??Drug-eluting stent to the ostial right PDA ?Right dominant coronary circulation ??Severe ostial RPDA stenosis, culprit lesion-status post IVUS guided PCI with ??an Jah 2.5 x 34 mm drug-eluting stent (MSA 5.4 mm2, distal MLA 5.1 mm ??Minimal LAD disease ??Minimal left circumflex disease ?LVEDP 13 mmHg, no pullback gradient across aortic valve ??LVEF 55-60%, no obvious regional wall motion abnormalities ?The patient presents with non-ST elevation myocardial infarction and a new ??diagnosis of atrial fibrillation. Coronary angiography shows severe ostial ??right PDA stenosis. There was minimal disease elsewhere. We treated this ??with IVUS guidance using a drug-eluting stent. We are satisfied with the ??result at the end. ?Interventional Recommendations ??1. Aspirin 81 mg daily. Stop this when the DOAC is started ??2. Plavix 75 mg daily for 1 year ??3. Start DOAC tonight or tomorrow morning ??4. Risk factor management per guidelines for established coronary artery ??disease ?Signatures ?Electronically signed by Edi Mireles MD(Performing Physician) on ??09/23/2024 18:06 ?Electronically signed by Edi Mireles MD(Interventional physician) ??on 09/23/2024 18:06 ?Coronary Tree ?Dominance: Right [1] Chaparro Reid MD 45??minutes spent on discharge [1]??Diagnostic Cardiac Cath; Edi Mireles MD Y 09/23/2024 17:04 EST * Sofi Brush MD: PERFORM Event Display: Discharge/Transfer Note Hospital Authored Date: Attending Attestation: I have seen and evaluated this patient.?? I have discussed the case and its management with the resident and agree with the findings and plan as documented in the resident???s note. * Jossie Lennon RN: PERFORM Event Display: Patient Education/Instruction Authored Date: Inpatient Adult Discharge Instructions. [address] [address] Name: TRISTAN GLASGOW : 1960?? Visit: 09/23/2024 14:19?? Current Date: 09/24/2024 11:18 ?? Account: [id number]?? Inpatient Adult Discharge Instructions We would like to thank you for allowing us to assist you with your healthcare needs. The following includes patient education materials and information regarding your injury/illness. Our entire staffstrives to provide an excellent experience for our patients and their families. PLEASE ENSURE YOU FOLLOW-UP PER THE INSTRUCTIONS BELOW! ?? YOUR OPINION IS IMPORTANT TO US! Please complete the survey you may receive by mail or email. Your feedback will be used to make improvements to the healthcare experiences of our patients and their families. Surveys are administered by [employer] ?? If further treatment with your primary care physician or another doctor is recommended, it is important for you to keep the appointment. Call your primary care physician or return to the Emergency Department immediately if your condition worsens, fails to improve, or new symptoms develop. If you need to find a doctor, you can call [facility] for a referral at [phone] or toll free at [phone]) or log in to [email or web address].. ?? [facility], in keeping with [facility] guidance, no longer requires face masks for staff, patientsor visitors in most situations. Similiar to time spent indoors at other locations, there is the chance that you were exposed to repiratory viruses during your time with us (such as flu or COVID-19). If you develop symptoms concerning for a viral respiratory infection, please seek testing (and treatment if indicated) from your medical provider or home test kit. ?? You can view and manage your care through the patient portal or by using a health care jimbo of your choosing. [email or web address] is a website that allows you to securely view your medical information including your hospital discharge summary, office visit summaries, medications and follow-up visits. You can also request appointments, renew medications, and request access to your medical information using a health care jimbo of your choosing, or just ask a question. You can enroll at [email or web address] or register during your next office visit. You have been discharged from [facility], Patient Care Unit: M7??. If you have any questions regarding these instructions, including results of studies pending, afteryou leave, please call us and we will be happy to assist you 18/05. [facility] Your Care Team Attending Physician Sofi Brush MD?? Consulting Providers Sofi Brush MD?? Discharging Providers Chaparro Reid MD Your Diagnosis Atrial fibrillation Hypertension Non-STEMI (non-ST elevated myocardial infarction) Tobacco use disorder Tests Performed Below is a partial list of the tests performed during your hospitalization. You may have had other tests and procedures not included in this list. Please discuss all test results with your provider. BUN Calcium Level CBC CBC w/ Differential Creatinine Electrolytes Glucose Level Hemoglobin A1C (Monitoring) Lipid Panel POC Hemochron ACT-LR Troponin T, High Sensitivity TSH BUN?? CBC?? CBC w/ Differential?? Calcium Level?? Creatinine?? Electrolytes?? Glucose Level?? Hemoglobin A1C (Monitoring)?? High??Sensitivity??Troponin T (Troponin T, High Sensitivity)?? Lipid Panel?? POC ACT-LR (POC Hemochron ACT-LR)?? TSH?? Primary Care Provider Brando More MD? Advance Directive Health Care Proxy on File No Discharge Vitals Temperature: 98 DegF Height: 186 cm Pulse Rate: 83 bpm Weight: 129.4 kg Respiratory Rate: 18 br/min Body Mass Index:??37.4 kg/m2??Critical Systolic Blood Pressure:??150 mm Hg??High Body surface area: 2.59 Diastolic Blood Pressure:??95 mm Hg??High ?? Oxygen Saturation: 96 % ?? Studies Pending All studies ordered during this hospital stay have been completed unless listed below. Please discuss all pending results with your provider listed above in these instructions. ?? No incomplete studies found?? What to do next Instructions From Your Doctor ?? Orders? 09/24/24 10:54:00 EST?? Prescriptions??, ??09/24/24 10:54:00 EST?? You Need to Schedule the Following Appointments Follow Up with??Brando More MD When:??Within 1 week: call to discuss follow up visit Where: [address] [place] [id number]- Follow Up with??[facility] When:??Within 1 to 2 weeks Why: An email has been sent to them with your contact information.?? Your Tool Lapper Hand who will follow up with you is the ordering MD. Their office can work the Cardiac Rehab. Where: [address] [place] [address]- [phone] Discharge Medications TRISTAN GLASGOW :1960 Visit Date:09/23/2024 Medications: Please continue your medications until treatment is completed or stopped by your provider. Medications not listed below should be discontinued. Discuss any questions related to medications with your provider. What How Much When Instructions Next Dose New apixaban (apixaban 5 mg oral tablet) 5 Milligram Oral Twice a day Pickup at [address] 09/24 New Atorvastatin (atorvastatin 80 mg oral tablet) 80 Milligram Oral Daily at Bedtime Pickup at [facility] 09/24 New Clopidogrel (clopidogrel 75 mg oral tablet) 75 Milligram Oral Daily Refills: 3 Pickup at [facility] 3 tomorrow 09/25 New Metoprolol (Metoprolol Succinate ER 25 mg oral tablet, extended release) 25 Milligram Oral Daily Pickup at [place] [address] tomorrow 09/25 New Nicotine (Nicotine 2 mg gum) 1 Each Chew Every 2 hours as needed for as needed for smoking cessation Refills: 1 Pickup at [place] [address] as needed New Nicotine (nicotine 21 mg/ 24 hr transdermal film, extended release) 1 patch(es) Topically Daily Pickup at [place] [address] tomorrow 09/25 Unchanged Escitalopram (Lexapro 20 mg oral tablet) 1 tab(s) Oral Daily tomorrow 09/25 Unchanged Lisinopril 20 Milligram Oral Daily tomorrow 09/25 Unchanged Silver SulfADIAZINE Topical (Silvadene 1% cream) See Instructions Topically 2 times a day ?? continue home regimen Pharmacy Information [place] [address]: [address] [place] [address] [phone] Prescription Given During Visit Atorvastatin (atorvastatin 80 mg oral tablet) - 80 mg, By Mouth, Daily at bedtime, # 30 tablet, 0 Refills, [place] [address] [phone]?? Clopidogrel (clopidogrel 75 mg oral tablet) - 75 mg, By Mouth, Daily, # 30 each, 3 Refills, [address] [address] [phone]?? Metoprolol (Metoprolol Succinate ER 25 mg oral tablet, extended release) - 25 mg, By Mouth, Daily, # 30 each, 0 Refills, [place] [address], [address] [place] [phone]?? Nicotine (Nicotine 2 mg gum) - 1 each = 2 mg, Chew, Every 2 hours, # 160 each, 1 Refills, [facility], [address] [place] [phone]?? Nicotine (nicotine 21 mg/24 hr transdermal film, extended release) - 1 patch, Topically, Daily, # 30 patch, 0 Refills, [facility], [address] [place] [phone]?? apixaban (apixaban 5 mg oral tablet) - 5 mg, By Mouth, 2 times a day, # 60 tablet, 0 Refills, [facility], [address] [place] [address] [phone]?? Laboratory Results Below is a partial list of the most recent Laboratory test results done prior to this discharge. You may have had other tests and procedures not included in this list. Please discuss all test resultswith your provider. Est Creatinine Clearance - 96.47 mL/min (09/24/2024) BUN (09/24/2024) ???BUN - 17 mg/dL Calcium Level (09/23/2024) ???Calcium - 8.7 mg/dL CBC (09/24/2024) ???WBC - 9.0 k/mm3???RBC - 4.46 m/mm3???Hgb - 14.4 Gm/dL???Hct - 43.5 %???MCV - 97.5 femtoliters???MCH - 32.3 pg???MCHC - 33.1 Gm/dL???Platelet Count - 212 k/mm3???RDW-SD - 48.0 femtoliters???MPV - 9.2 femtoliters???Nucleated RBC (Automated) - 0.0 #/100 WBC'S???Abs. NRBC - 0.0 k/mm3 CBC w/ Differential (09/23/2024) ???WBC - 8.9 k/mm3???RBC - 4.50 m/mm3???Hgb - 14.4 Gm/dL???Hct - 42.2 %???MCV - 93.8 femtoliters???MCH - 32.0 pg???MCHC - 34.1 Gm/dL???Platelet Count - 217 k/mm3???RDW-SD - 45.9 femtoliters???MPV - 9.3 femtoliters???Nucleated RBC (Automated) - 0.0 #/100 WBC'S???Abs. NRBC - 0.0 k/mm3???Abs. Neut - 4.4 k/mm3???Abs. Lymph - 3.5 k/mm3???Abs. [place] - 0.7 k/mm3???Abs. Eo - 0.3 k/mm3???Abs. Baso - 0.1 k/mm3???Neut % - 49.0 %???Lymph % - 39.6 %???[place] % - 7.7 %???Eos % - 2.8 %???Baso % - 0.7 %???Imm Gran - 0.2 %???Abs. Imm Gran - 0.0 k/mm3 Creatinine (09/24/2024) ???Creatinine-Blood - 0.88 mg/dL???Estimated GFR Creatinine - 96 ML/MIN/1.73 M2 Electrolytes (09/24/2024) ???Sodium - 138 mmol/L???Potassium - 4.3 mmol/L???Chloride - 105 mmol/L???Bicarbonate Level - 22 mmol/L???Anion Gap - 11 Glucose Level (09/23/2024) ???Glucose Level - 83 mg/dL Hemoglobin A1C (Monitoring) (09/24/2024) ???Hemoglobin A1C (Monitoring) - 5.7 % Lipid Panel (09/24/2024) ???Cholesterol - 142 mg/dL???Triglycerides - 181 mg/dL???HDL Cholesterol - 21 mg/dL???LDL Cholesterol - 85 mg/dL???Non HDL Cholesterol - 121 mg/dL POC Hemochron ACT-LR (09/23/2024) ???POC ACT-LR - 303.0 seconds Troponin T, High Sensitivity (09/23/2024) ???High Sensitivity Troponin (HSTnT) - 50 ng/L TSH (09/24/2024) ???TSH - 2.36 uIU/mL You will be contacted within 72 hours with your results. Allergies (NKA means No Known Allergies) Bee Stings [place] Onions Problems Active Problems??(3) Burn of lower leg?? HYPERTENSION?? Obese class II?? Education Materials Below is the list of Educational Leaflet Providered with your Discharge Instructions. WebMD Ignite Patient Education - Lifestyle Management After Percutaneous Coronary Intervention (PCI)?? WebMD Ignite Patient Education - Understanding Coronary Artery Disease (CAD)?? WebMD Ignite Patient Education - Having Cardiac Catheterization?? WebMD Ignite Patient Education - Bleeding or Hematoma After Cardiac Catheterization?? WebMD Ignite Patient Education - Understanding Transradial Cardiac Catheterization?? WebMD Ignite Patient Education - Discharge Instructions for Cardiac Catheterization?? Valuables and Belongings I fully understand and agree that [facility] accepts no responsibility for all my personal property including clothing, toilet articles, radios, jewelry, dentures, hearing aids, rings, money, or any other property that is in my possession or is brought to me after admission. I understand certain valuables may be placed in a hospital safe for a short period of time. I understand that the hospital is not liable for loss or damage due to accident, fire, or other natural occurrence while said property is in the safe. I accept full responsibility for any personal property that I keep with me, and will not hold the hospital responsible in case of loss or disappearance. I acknowledge that i have been encouraged to send valuables and belongings home. ? Other Discharge Information ? Pulmonary Rehab Status?? Pulmonary Rehab Discharge Status?? Respiratory Rate: 18 br/min ? Cardiac Rehab Assessment?? Cardiac Rehab Inpatient Assessment?? Comments-Education: POST [place]/PCI Guidelines, STENT Book Review Comments-Exercise Activity: activity recommendations and restrictions Comments-Other plan of care: recommend cardiac rehab Common Emergency Awareness Tips IS IT A STROKE? Act FAST and Check for these signs: FACE Does the face look uneven? ARM Does one arm drift down? SPEECH Does their speech sound strange? TIME Call at any sign of stroke ?? Heart Attack Signs Chest discomfort: Most heart attacks involve discomfort in the center of the chest and lasts more than a few minutes, or goes away and comes back. It can feel like uncomfortable pressure, squeezing, fullness or pain. Discomfort in upper body: Symptoms can include pain or discomfort in one or both arms, back, neck, jaw or stomach. Shortness of breath: With or without discomfort. Other signs: Breaking out in a cold sweat, nausea, or lightheaded. Remember, MINUTES DO MATTER. If you experience any of these heart attack warning signs, call to get immediate medical attention! ?? Smoking can increase your chances of developing chronic health problems and can cause harmful effects to other family members in your house. If you smoke, you are strongly encouraged to quit. Please call [facility] Link at [phone] or [phone] ([phone]) or log in to [email or web address] for referrals to smoking cessation programs. ?? 986 Suicide & Crisis Lifeline is available 18/05 if you or someone you know needs to find a reason to keep living. By calling 973 you'll be connected to a skilled, trained counselor at a crisis center in your area. INPATIENT DISCHARGE INSTRUCTIONS SIGNATURE PAGE TRISTAN GLASGOW Location:[facility] Registration Date and Time:09/23/2024 14:19 EST Primary Care Physician: Brando More MD, Attending Physician: Trudi SILVEIRA, Sofi, I TRISTAN GLASGOW, have received the above patient education materials/instructions and have verbalized understanding. If ambulance or transport services are being used I further acknowledge being given a choice of service. ?? If you need to contact me, please call me at this number: . Patient/Front End Java Developer Name: Patient/Front End Java Developer Signature: Relationship to Patient: Witness Name/Signature: Date: * Jossie Lennon RN: PERFORM Event Display: Patient Education Leaflets Authored Date: [id number] Lifestyle Management After Percutaneous Coronary Intervention (PCI) ?? 06941 Lifestyle Management After Percutaneous Coronary Intervention (PCI) Percutaneous coronary intervention (PCI)??involves angioplasty and often stenting. This procedure can open arteries in your heart and improve blood flow to relieve symptoms. But, it doesn???t cure coronary artery disease. New blockages can still form. You need to take steps to prevent this by managing risk factors. Doing so will help make your heart and arteries healthier. Your healthcare provider may prescribe cardiac rehabilitation to help with this lifelong process. Understanding risk factors Some risk factors for coronary artery disease can be controlled. These include smoking, high blood pressure, cholesterol, diabetes, and obesity. They can be managed with medicine, diet, and exercise.Support and counseling can also play a role. The effort will pay off! Managing risk factors can help you be more active, feel better, and reduce the risk of heart attack. ?? If you smoke, get help to quit! If your healthcare provider has been urging you to quit smoking, it???s for good reasons. Smoking damages your heart, blood vessels, and lungs. The good news is that quitting can halt or even reversethe damage of smoking. To quit now: ??? Get medical help. Ask your provider for advice on stop-smoking programs. Also ask about medicine or nicotine replacement therapy products that may help you quit smoking. ??? Get support. Join a support group. Ask for help from your family and friends. ??? Don???t give up. It often takes several tries to succeed in quitting smoking. ??? Stay away from secondhand smoke. Ask family and friends not to smoke around you. ?? Last Reviewed Date: 2024 ?? [employer] Dragon Inside. All rights reserved. This information is not intended as a substitute for professional medical care. Always follow your healthcare professional's instructions. ?? * Jossie Lennon RN: PERFORM Event Display: Patient Education Leaflets Authored Date: [id number] Understanding Coronary Artery Disease (CAD) ?? 55037 Understanding Coronary Artery Disease (CAD) Your heart is a muscle. To work right, this muscle needs a steady supply of oxygen. The coronary arteries are blood vessels that send oxygen-rich blood to the heart muscle. Coronary artery disease (CAD) is when there???s a problem in these blood vessels. Healthy artery. A healthy coronary artery has no blockages. Blood easily flows through it. Healthy arteries can supply all the oxygen-rich blood your heart muscle needs. Healthy artery. Damaged artery. Some things can damage the lining of an artery. These include smoking, high blood pressure, and high blood sugar. CAD starts when this damage leads to the buildup of plaque along the artery wall. Plaque is a substance made of cholesterol and other fatty deposits. Plaque narrows the arteries that send blood to your heart muscle. This is called atherosclerosis. Damaged artery. Narrowed artery. As more plaque builds up, an artery has trouble sending blood to your heart musclewhen it's needed the most, such as during exercise. You may not feel any symptoms when this happens. Or you may feel pressure, tightness, aching, or pain in your chest, jaw, neck, back, or arm. This is called angina. Narrowed artery. Blocked artery. A piece of plaque can break off. This is called ruptured plaque. It can fully blockthe artery. But more often, a blood clot forms on a piece of ruptured plaque. Together these block the narrowed artery. Then blood can't reach the heart muscle. Right away, part of the heart muscle becomes damaged and stops working. You may feel crushing pressure or pain in or around your chest. This is a heart attack (acute myocardial infarction). It???s a medical emergency. Blocked artery. Last Reviewed Date: 2021 ?? 1108-7154 [employer]. All rights reserved. This information is not intended as a substitute for professional medical care. Always follow your healthcare professional's instructions. ?? * Jossie Lennon RN: PERFORM Event Display: Patient Education Leaflets Authored Date: [id number] Having Cardiac Catheterization ?? 86999 Having Cardiac Catheterization You may have had chest pain (angina), dizziness, or other symptoms of heart trouble. To help diagnose your problem, your healthcare provider??may advise a cardiac catheterization. This is a procedurethat looks for a blockage or narrow area in the arteries around the heart.??These can cause chest pain or a heart attack if not treated. It can also be used to evaluate other problems with your heart. This common procedure may also be used to treat a heart problem. It may be done as a planned procedure if you've had chest pain in the past. Or it may be done right away to treat a suspected heart attack. The catheter may be placed in the arm or the groin. Before the procedure ??? Tell your healthcare team what medicines you take and about any allergies you have. ??? Follow any directions you're given for not eating or drinking before the procedure. ?? During the procedure ??? Hair may be trimmed where the catheter will be inserted. This may be in your leg (groin), wrist, or arm. ??? You may be given medicine to relax before the procedure. ??? You'll be given a local anesthetic to prevent pain at the insertion site. ??? A healthcare provider inserts a tube (sheath) into a blood vessel in your groin or arm. ??? Through the sheath, a long, thin tube called a catheter is placed inside the artery. The catheter is then guided toward your heart under X-ray guidance. ??? The catheter can then be used to measure pressures in the heart. It can take blood samples if needed. It can also be used to inject contrast into the heart arteries to look for b lockages. This is called angiography. ?? After the procedure ??? Your healthcare providers will tell you how long to lie down and keep the insertion site still. ??? If the insertion site was in your groin, you may need to lie down with yourleg still for up to 6 or more hours. A stitch (suture) or closure device such as a collagen plug??may be used on the artery site to close the site. If so, you may be able to move sooner. This dependson any bleeding that occurs. ??? If your arm was used, you may need to wear a special type of immobilizing device and pressure bandage for a few hours after the procedure. ??? A nurse will check the insertion site and your blood pressure. ??? You may be asked to drink fluid. This is to help flush the contrast liquid out of your system. ??? Have someone drive you home from the hospital. ??? It???snormal to find a small bruise or lump at the insertion site. This should go away in a few weeks. ?? When to call your healthcare provider Call your healthcare provider??right away if you have any of these: ??? Pain, swelling, redness, warmth, bleeding, or fluid leaking at the insertion site ??? New, severe back pain or chest pain ??? Inability to pee ??? Blood in your urine, black or sticky stools, or any other kind of bleeding ??? Fever of 100.4??F??( 38.0??C) or higher, or as advised by your provider ?? Call 911 Call 911 if you have any of these: ??? Chest pain or pressure, nausea or vomiting, profuse sweating, dizziness, or fainting ??? Shortness of breath or trouble breathing ??? Severe pain, coldness, or a bluish color in the leg or arm where the catheter was inserted ??? Sudden numbness or weakness in arms, legs, or face, or difficulty speaking ??? The puncture site swells up very fast ??? Bleeding from the puncture site doesn't slow down when you press on it firmly ?? Last Reviewed Date: 2021 ?? [id number] The Dragon Inside. All rights reserved. This information is not intended as a substitute for professional medical care. Always follow your healthcare professional's instructions. ?? Consult note * Raj Piedra MD: PERFORM Event Display: Consultation Note Authored Date: [id number] Patient: ??PEE TRISTAN ? Age:??63 Years?Sex:??Male?:??1960?? History of Present Illness/Interval History [facility] Consult Note Consult Reason: NSTEMI Outpatient Tool Lapper Hand:?? None Requesting Provider: Ozzie Consulting Physician: Karin ?? 63 male history??hypertension, obesity,??smoking??transferred from [facility] for??chest pain with concern for NSTEMI.?? He describes 1 day of intermittent??events of chest pain??lasting up to??30 minutes at a time. ??Pain was described as sternal pressure radiating up to the right jaw??occurring at r est. ??He has never had the symptoms before. ??No orthopnea/dyspnea/LLAMAS/palpitations/PND/lower extremity swelling.?? Prior to yesterday was doing well.?? He is currently without chest pain??and has been n.p.o. since midnight. ?? At [facility],??was evaluated with nonischemic EKG??and troponin??220.?? He was given??aspirin load??and Lovenox??and transferred to [facility]. ?? Family history:??Brother [place] 68, mother [place] 80 ?? Cardiac Home Meds:??Lisinopril 20 ?? Data Reviewed: ??? Labs:??[facility] HST , creatinine??1.01??[60 ??? ECG:??NSR Review of Systems Constitutional, Eye, Skin, Head/Neck, ENMT, Respiratory, Cardiovascular, Gastrointestinal, Endocrine, Musculoskeletal, Neurologic, Psych reviewed and negative except as noted in HPI Physical Exam Vitals & Measurements T:??96.9?F?? HR:??74??(Peripheral)?? RR:??18?? BP:??136/89?? SpO2:??95%?? HT:??186??cm?? WT:??129.4??kg?? BMI:??37.4?? Weight lb/oz: 285 lb 4 oz General Appearance: The patient is in NAD. Cardiovascular: RRR S1 and S2 heard with no M/R/G. No JVD. Respiratory:?Breath sounds clear to auscultation bilaterally. No wheezing. Good air movement throughout both lungs. MS:?No edema or erythema in the lower extremities. No wounds seen on the feet. Peripheral sensation intact.?? Neuro:?No slurred speech.?Patient seen moving their upper and lower extremities independently. Psych: Alert and oriented x3. Appropriate and pleasant. CAM negative. Assessment/Plan 63 male history smoking, HTN, obesity,??family history [place]??transferred from [facility] with concern for NSTEMI ?? Typical symptoms though??occurring at rest. ??Has??significant risk factors and??rising troponin levels.?? Believe type I event. ??Discussed with??interventional cardiology who will take him??for LHCtoday ?? #NSTEMI T1 ?? Recommendations: ???Continue ASA,??atorvastatin 80, telemetry, Lovenox q12 ???Get echocardiogram ???Lipids, A1c, TSH ???Keep n.p.o.,??plan for LHC today ???Cardiac rehab ???Further GDT/GDMT??per??findings??above ? Findings and plan of care was discussed and agreed on with Dr. Frazier ?? Raj Piedra MD Cardiovascular Disease Fellow, PGY-4 [facility] [place] Connect / Pager: [phone] Allergies Bee Stings [place] Onions Home Medications Escitalopram: 20 mg = 1 tablet, By Mouth, Daily Lisinopril: 20 mg, By Mouth, Daily Silver SulfADIAZINE Topical: See Instructions, Topically 2 times a day Hospital Medications Medications (12) Active SCHEDULED: (3) Fluzone Trivalent (6mo ??? 64yr) Inj 0.5mL (Influenza, Trivalent Vaccine) ??0.5 mL, Intramuscular, Once Lisinopril 20 mg Tablet (lisinopril 20 mg oral tablet) ??20 mg, By Mouth, Daily NaCl 0.9% Flush 3ml (NaCL 0.9% Flush) ??3 mL, IV Push, Every 8 hours CONTINUOUS: (0) PRN: (9) Acetaminophen 325 mg Tablet (Acetaminophen Tablet) ??650 mg, By Mouth, Every 4 hours Dextromethorphan-Guaifenesin 20 mg-200 mg/10 mL Liqu UD (Robitussin DM Liquid) ??10 mL, By Mouth, Every 4 hours Docusate Sodium 100 mg Capsule (Docusate Sodium Capsule) ??100 mg 1 capsule, By Mouth, 2 times a day Melatonin 3 mg Tablet (Melatonin Tablet) ??3 mg, By Mouth, Daily at bedtime NaCl 0.9% Flush 3ml (NaCL 0.9% Flush) ??3 mL, IV Push, Every 8 hours Nitroglycerin 0.4 mg Sublingual Tablet (nitroglycerin 0.4 mg sublingual tablet) ??0.4 mg, Sublingual, Every 5 minutes Polyethylene Glycol 17 Gm Powder (MiraLax Powder) ??17 Gm 1 pack/packet, By Mouth, Daily Senna Tablet ??8.6 mg 1 tablet, By Mouth, 2 times a day Simethicone 80 mg Chewable Tablet (Simethicone Tablet) ??80 mg, Chew, 3 times a day Diagnostic Impression ECG ECG 12-Lead ?? 16:40:59 Please click on pdf link to open report ?? Signed By: Babar Benson MD ?? ECG 12-Lead ?? 16:40:59 Ventricular Rate: 66 BPM QRS Duration: 106 ms Q-T Interval: 422 ms QTC Calculation(Bazett): 442 ms R [place]: -27 degrees T [place]: 24 degrees Atrial fibrillation Abnormal ECG When compared with ECG of 23-Sep-2024 16:40, No significant change Confirmed by BABAR BENSON MD ([id number]) on 09/23/2024 5:25:08 PM ?? [place]: BABAR BENSON MD ?? Signed By: Babar Benson MD Problem List/Past Medical History Ongoing Burn of lower leg HYPERTENSION Obese class II Procedure/Surgical History No qualifying data available. Family History No family history recorded. * Ilda Frazier MD: PERFORM Event Display: Consultation Note Authored Date: [id number] Attending Attestation: I have seen and evaluated this patient.?? I have discussed the case and its management with the resident and agree with the findings and plan as documented in the resident???s note. * Raj Piedra MD: PERFORM Event Display: Consultation Note Authored Date: [id number] EKG w AF - CHADSVASC 2. Now s/p PCI to RPDA. Should proceed on Eliquis/Plavix. Additionally should start metoprolol succinate Thursday Patient Care team information Care Team Personnel Name: Jossie Lennon RN Position: [facility] RN Member Role: Primary Care Nurse Name: Brando More MD Position: [facility] Outreach Member Role: PCP Address: [address] [place] [address] Telecom: Care Team Related Persons Name: SHIRLEY GLASGOW Insurance Providers Guarantor name: JULIEN Health Plan Information #: 1 Payer: [employer] Member Number: [id number] Policy Number: NA Group Number: NA Health Plan Information #: 2 Payer: S[employer] INSURANCE Member Number: [id number] Policy Number: NA Group Number: NA
== END 2024-10-05 12:13 | disposition home or self-care (01) ==
PROVIDERS: Visit Provider Internal Medicine Cardiovascular Disease
DX: I48.19 Other persistent atrial fibrillation (principal); I21.4 Non-ST elevation (NSTEMI) myocardial infarction
CPT/HCPCS: 93010; 99214

== ENCOUNTER → 2024-10-05 11:00 | Outpatient (BNVA) | payer OTHER, SELFPAY | PROVIDERS: Visit Provider Internal Medicine Cardiovascular Disease | DX: I48.19 Other persistent atrial fibrillation (principal); I21.4 Non-ST elevation (NSTEMI) myocardial infarction; I10 Essential (primary) hypertension; Z95.820 Peripheral vascular angioplasty status with implants and grafts | CPT/HCPCS: 93005 ==

== ENCOUNTER 2024-11-09 11:36 | Day surgery (SDC) | payer OTHER, SELFPAY ==
--- OUTSIDE RECORDS SUMMARY | 2024-11-02 11:59 | XMS_ITS | Continuity of Care Document ---
Author Organization [facility] Address [address] [place] [id number]- Care Team Providers Care Bone Plant Supervisor Name Role Phone Brando More MD Primary Care Physician Encounter [facility] Date(s): 09/30/24 - 10/30/24 [facility] [address] [place] [id number]- Encounter Type: Triage Allergies, Adverse Reactions, Alerts Substance Criticality Severity Reaction Reaction Severity Status Bee Stings Active [place] Active Onions Active Medications apixaban 5 mg oral tablet = 5 mg, By Mouth, 2 times a day, # 60 tablet, 0 Refills, Maintenance, 09/24/24 8:03:00 AM EST, Tablet, [facility], Partial fill upon patient [...] 0 Refills, Maintenance, 09/24/24 10:50:00 AM EST,Tablet, [facility], Partial fill upon patient [...] 09/24/24 8:04:00 AM EST,Route to Pharmacy Electronically, [facility], Partial fill upon patient [...] Date: 09/23/24 Status: Ordered Repeat number: 1 Metoprolol Succinate ER 25 mg oral tablet, extended release 25 mg, By Mouth, Daily, # 30 each, Refills 0, Tot. Refills 0, Maintenance, 09/24/24 8:04:00 AM EST,Route to Pharmacy Electronically, [facility], Partial fill upon patient [...] Refills, Maintenance, 09/24/24 11:11:00 AM EST, Gum, [facility], Partial fill upon [...] Refills, Maintenance, 09/24/24 11:11:00 AM EST, Patch, [facility], Partial fill upon patient [...] Confirmed Active Obese class II Confirmed Active Patient Care team information Care Team Personnel Name: Jossie Lennon RN Position: [facility] RN Member Role: Primary Care Nurse Name: Brando More MD Position: [facility] Outreach Member Role: PCP Address: [address] [place] [address] Telecom: Care Team Related Persons Name: SHIRLEY GLASGOW Insurance Providers Guarantor name: JULIEN Health Plan Information #: 1 Payer: [place] [employer] Member Number: NA Policy Number: NA Group Number: NA
--- OUTSIDE RECORDS SUMMARY | 2024-11-02 11:59 | XMS_ITS | Continuity of Care Document ---
Author Organization [facility] Address [address] [place] [id number]- Care Team Providers Care Apparatus Lineman Name Role Phone Brando More MD Primary Care Physician [phone] [place] [facility] [place]26[place]24 - 10/26/24 [facility] [address] [place] [id number] Encounter Type: Triage Allergies, Adverse Reactions, Alerts Substance Criticality Severity Reaction Reaction Severity Status Bee Stings Active [place] Active Onions Active Medications apixaban 5 mg oral tablet = 5 mg, By Mouth, 2 times a day, # 60 tablet, 0 Refills, Maintenance, 09/24/24 8:03:00 AM EST, Tablet, [facility], Partial fill upon patient [...] 0 Refills, Maintenance, 09/24/24 10:50:00 AM EST,Tablet, [facility], Partial fill upon patient [...] 09/24/24 8:04:00 AM EST,Route to Pharmacy Electronically, [facility], Partial fill upon patient [...] 09/24/24 8:04:00 AM EST,Route to Pharmacy Electronically, [facility], Partial fill upon patient [...] Refills, Maintenance, 09/24/24 11:11:00 AM EST, Gum, [facility], Partial fill upon [...] Refills, Maintenance, 09/24/24 11:11:00 AM EST, Patch, [facility], Partial fill upon patient [...] Team Personnel Name: Jossie Lennon RN Position: [facility] RN Member Role: Primary Care Nurse Name: Brando More MD Position: [facility] Outreach Member Role: PCP Address: [address] [place] [address] Telecom: Care Team Related Persons Name: SHIRLEY GLASGOW Insurance Providers Guarantor name: JULIEN Health Plan Information #: 1 Payer: [employer] Member Number: JULIEN Policy Number: NA Group Number: [id number]
--- NOTE | 2024-11-09 | ECG_ITS ---
Test Reason : pacu Blood Pressure : */* mmHG Vent. Rate : 52 BPM Atrial Rate : 52 BPM P-R Int : 194 ms QRS Dur : 106 ms QT Int : 494 ms P-R-T Axes : 60 -9 6 degrees QTcB Int : 459 ms Sinus bradycardia with Premature supraventricular complexes Septal infarct , age undetermined Abnormal ECG No previous ECGs available Referred By: Juan Borrero Electronically Signed By: Juan Borrero
[2024-11-09 12:29] VITALS: BMI 37.3
[2024-11-09 12:38] VITALS: BP 146/80; PULSE 83; RESP 16; TEMP 37; O2SAT 95
[2024-11-09] MEDS: Lactated Ringers 1,000 ML 100 ML IVCONT (12:58)
--- NOTE | 2024-11-09 13:38 | P.CONAN_ITS ---
Documented by User: Peyton Koo NP 11/08/24 10:47 HPI - Anesthesia Eval Consult details Narrative: 63yo M for Cardioversion NSTEMI 08/2024 with EDINSON to PDA - plavix afib - [facility] Active Problems Active Problems: All Active Problems NSTEMI (non-ST elevated myocardial infarction) (Acute) Persistent atrial fibrillation (Acute) Past Medical History Medical History (Updated 10/05/24 @ 12:30 by Juan Borrero MD) NSTEMI (non-ST elevated myocardial infarction) Family History Family History (Updated 10/05/24 @ 11:28 by Mindy Meza CMA) Mother High blood pressure Paroxysmal A-fib Father No problems noted. Social History Social History (Updated 10/05/24 @ 11:30 by Mindy Meza CMA) Alcohol intake: never Patient Tobacco Use Status: Former Tobacco user Tobacco use type: Cigarette e-Cigarette/Vaping Use: Former Use Use of substances other than those prescribed or required for medical reasons: No Advance Directives: No Advance Directives Information Provided: Yes Meds Allergies Allergy/AdvReac Type Severity Reaction Status Date / Time No Known Allergies Allergy Verified 10/05/24 11:24 Home Medications ?Medication ?Instructions ?Recorded ?Confirmed ?Last Taken ?Type lisinopril 20 mg tablet 20 mg PO DAILY 10/05/24 11/09/24 11/09/24 04:30 History Exam Pertinent Lab Results Pertinent Lab Results: CBC and BMP 08/2024 Narrative Narrative: EKG Details: Atrial fibrillation 90 beats per minute, normal axis, QTC 477 milliseconds. Cardiac cath 08/2024 Coronary angiography with left heart catheterization and left ?ventriculography ?Intravascular ultrasound of the RCA ?Drug-eluting stent to the ostial right PDA ?Right dominant coronary circulation ?Severe ostial RPDA stenosis, culprit lesion-status post IVUS guided PCI with ?an Jah 2.5 x 34 mm drug-eluting stent (MSA 5.4 mm2, distal MLA 5.1 mm ?Minimal LAD disease ?Minimal left circumflex disease ?LVEDP 13 mmHg, no pullback gradient across aortic valve ?LVEF 55-60%, no obvious regional wall motion abnormalities ?The patient presents with non-ST elevation myocardial infarction and a new ?diagnosis of atrial fibrillation. Coronary angiography shows severe ostial ?right PDA stenosis. There was minimal disease elsewhere. We treated this ?with IVUS guidance using a drug-eluting stent. We are satisfied with the ?result at the end. ?Interventional Recommendations ?1. Aspirin 81 mg daily. Stop this when the DOAC is started ?2. Plavix 75 mg daily for 1 year ?3. Start DOAC tonight or tomorrow morning ?4. Risk factor management per guidelines for established coronary artery ?disease Assessment and Plan Assessment Anesthesia Assessment: Chart Reviewed Documented by User: Yudy Roth DO 11/09/24 13:38 [facility] Past Medical History Medical History (Updated 10/05/24 @ 12:30 by Juan Borrero MD) NSTEMI (non-ST elevated myocardial infarction) Family History Family History (Updated 10/05/24 @ 11:28 by Mindy Meza [facility]) Mother High blood pressure Paroxysmal A-fib Father No problems noted. 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) Alcohol intake: never Patient Tobacco Use Status: Former Tobacco user Tobacco use type: Cigarette e-Cigarette/Vaping Use: Former Use Use of substances other than those prescribed or required for medical reasons: No Advance Directives: No Advance Directives Information Provided: Yes Meds Allergies Allergy/AdvReac Type Severity Reaction Status Date / Time No Known Allergies Allergy Verified 10/05/24 11:24 Home Medications ?Medication ?Instructions ?Recorded ?Confirmed ?Last Taken ?Type lisinopril 20 mg tablet 20 mg PO DAILY 10/05/24 11/09/24 11/09/24 04:30 History Exam Exam Date and Time: 11/09/24 1338 Height,Weight and Vital Signs: Height 6 ft 1 in Weight 128.367 kg Vital Signs Temperature 98.6 F 11/09/24 12:38 Pulse Rate 83 11/09/24 12:38 Respiratory Rate 16 11/09/24 12:38 Blood Pressure 146/80 H 11/09/24 12:38 Pulse Oximetry 95 11/09/24 12:38 Oxygen Delivery Method Room Air 11/09/24 12:38 Temperature 98.6 F 11/09/24 12:38 Pulse Rate 83 11/09/24 12:38 Respiratory Rate 16 11/09/24 12:38 Blood Pressure 146/80 H 11/09/24 12:38 Pulse Oximetry 95 11/09/24 12:38 Oxygen Delivery Method Room Air 11/09/24 12:38 Airway Mallampati Class: III TM Dist: >3cm Neck ROM: Full Denture: Upper and Lower Heart: S1S2 Lungs: CTAB Assessment and Plan Assessment Anesthesia Assessment: Anesthesia Plan Discussed and Chart Reviewed Final Anesthetic Review Family History of Problems with Anesthesia: No History of Problems with Anesthesia: No NPO: Yes ASA Class: III Final Preanesthetic Review: No Changes in Pt Med Stat, Meds/Allgs Chart Reviewed, Consent Obtained/Reviewed and Anes Risks/Benef Reviewed Patient Risk: Intermediate Procedure Risk: Intermediate Anesthetic Plan Anesthetic Plan: MAC: and Agree w/ Assess. and Plan Disposition: Standard PACU
--- NOTE | 2024-11-09 14:05 | MHC.SHP ---
Pre-Procedural Eval Section A - 24 Hr Update-Section A only Date of Service: 11/09/24 The patient is an INPATIENT: No The patient has been examined within 24 hours of the surgical procedure. The History & Physical has been completed within 30 days and I have reviewed it.: Yes Section B - Complete if H&P > 30 days Chief Complaint: Other persistent atrial fibrillation Allergies: Allergies Allergy/AdvReac Type Severity Reaction Status Date / Time No Known Allergies Allergy Verified 10/05/24 11:24 Plan Diagnosis/Plan: Unchanged I have reviewed the history and physical and performed a pertinent physical examination on my patient. No changes have occurred unless specified. Time Spent With Patient Time: Total time managing care of this patient today ____ minutes.
--- NOTE | 2024-11-09 14:21 | HO.CARDIVERS ---
Cardioversion Procedure Note Cardioversion Date of Procedure: 11/09/24 Ordering Provider: Juan Borrero MD Performing Provider: Juan Borrero MD Indication for Procedure: Symptomatic Afib Consent: Verbal and Written consent was obtained from the patient before starting. The patient was made aware of the risk of stroke, failure, skin irritation and arrhythmia. Procedure: After consent obtained, defib pads were attached and the patient was sedated by the anesthesia team. Once adequate sedation achieved, single synchronized shock of 200 J was given and the patient converted to sinus bradycardia. Complications: None Recommendations: c/w Apixaban, plavix and Toprol XL. Heart rate too slow to add antiarrhythmics right now. f/u in office in few weeks and we shall arrange Holter monitor.
[2024-11-09 14:24] VITALS: BP 124/81; PULSE 50; RESP 16; TEMP 36.4; O2SAT 98
[2024-11-09 14:39] VITALS: BP 125/76; PULSE 55; RESP 16; O2SAT 97
[2024-11-09 14:54] VITALS: BP 133/66; PULSE 55; RESP 16; TEMP 5389.4; TEMP 9733; O2SAT 96
== END 2024-11-09 15:12 | disposition home or self-care (01) ==
PROVIDERS: Visit Provider Internal Medicine Cardiovascular Disease
PROC: 5A2204Z Restoration of Cardiac Rhythm, Single (ICD-10-PCS; principal; 2024-11-09 13:30)
DX: I48.19 Other persistent atrial fibrillation (principal); Z79.01 Long term (current) use of anticoagulants; I25.2 Old myocardial infarction; Z79.899 Other long term (current) drug therapy; Z87.891 Personal history of nicotine dependence
CPT/HCPCS: 92960; 93005

== ENCOUNTER → 2024-11-09 11:36 | Outpatient (BNV) | payer OTHER, SELFPAY | PROVIDERS: Visit Provider Internal Medicine Cardiovascular Disease | DX: I48.91 Unspecified atrial fibrillation (principal) | CPT/HCPCS: 92960 ==

== ENCOUNTER → 2024-11-15 11:58 | Outpatient (REF) | payer OTHER, SELFPAY | LOC: HO.CARD 11:58 | PROVIDERS: Visit Provider Nurse Practitioner Family | DX: I48.91 Unspecified atrial fibrillation (principal); R00.1 Bradycardia, unspecified | CPT/HCPCS: 93225 ==

== ENCOUNTER 2024-11-24 12:42 | Outpatient (AMB) | payer OTHER, SELFPAY ==
--- NOTE | 2024-11-24 12:56 | A.OFFVIS_ITS ---
Vital Signs 11/24/24 12:58 Height 6 ft 1 in Weight 283 lb 1.176 oz BMI 37.3 BP 150/72 H Blood Pressure Location Lt brachial Position Sitting Pulse 43 L Pulse Source Monitor Intake Visit Reasons: Follow up post cardioversion Environmental Conflict Manager Required: No Accompanied by: Spouse Allergies No Known Allergies Allergy (Verified 10/05/24 11:24) Medication List - Last Reconciled 11/24/24 by Kevin Martinez NP apixaban (Eliquis) 5 mg PO BID 90 days atorvastatin 80 mg PO BEDTIME clopidogrel 75 mg PO DAILY lisinopril 20 mg PO DAILY metoprolol succinate ER 25 mg PO BID HPI Comments Details: This is a 63-year-old male patient presenting for a follow-up visit. In August 2024, he was admitted to [facility] for chest and arm discomfort and was subsequently transferred to [facility] for cardiac catheterization which revealed the severe PDA stenosis. He underwent PCI stenting to PDA. During this hospitalization he was also diagnosed with a fib. At his previous visit in the office, he complained of shortness of breath and fatigue, and due to his persistent AFib, the decision was to proceed with cardioversion. The patient has since undergone cardioversion. However, he reports feeling significantly worse 2 days post cardioversion, suspecting a viral illness. During this period, he experience notable shortness of breath both at rest and with exertion leading him to the office where a Holter monitor which was ordered. Patient states that since yesterday, his breathing has improved significantly. However, his accompanies him to the appointment today, notes that he is still not yet returned to his baseline. The patient otherwise denies any exertional chest pain, palpitations, dizziness, fatigue, orthopnea, PND, leg edema, presyncope, or syncope. [facility] Medical History NSTEMI (non-ST elevated myocardial infarction) Family History Mother High blood pressure Paroxysmal A-fib Father No problems noted. Social History Alcohol intake: never Patient Tobacco Use Status: Former Tobacco user Tobacco use type: Cigarette e-Cigarette/Vaping Use: Former Use Review of Systems Const Denies chills, Denies fatigue, Denies fever(s), Denies frequent falls, Denies weakness, Denies weight gain and Denies weight loss ENT Denies dizziness Card Denies chest pain, Denies leg edema, Denies lightheadedness, Denies palpitations, Denies dyspnea and Denies dyspnea on exertion Resp Denies cough, Denies dyspnea and Denies dyspnea on exertion GI Denies hematochezia Musc Denies abnormal gait, Denies muscle weakness, Denies numbness, Denies radiating pain into limb and Denies tingling Neuro Denies abnormal gait, Denies dizziness, Denies frequent falls, Denies numbness, Denies tingling and Denies weakness Endo Denies fatigue and Denies palpitations Physical Exam Vital Signs: Last Vital Signs Pulse 43 L 11/24/24 12:58 BP 150/72 H 11/24/24 12:58 BMI result Body Mass Index 37.3 Const General: cooperative, healthy appearing, comfortable and no acute distress Orientation/consciousness: patient oriented x3 HEENT Head: Yes normal to inspection Neck Neck: Yes normal visual inspection, Yes trachea midline and Yes supple Chest Chest palpation & inspection: normal inspection of the chest Resp Effort & Inspection: normal respiratory effort Auscultation: clear to auscultation bilaterally, no crackles, no rales, no rhonchi and no wheezes Cardio Jugular venous distension: no JVD Palpation: normal PMI Rate: regular rate Rhythm: regular rhythm Heart sounds: S1 normal heart sound present, S2 normal heart sound present, no click, no gallops, no murmurs and no rubs Peripheral pulses: Peripheral pulses 2+ throughout GI Inspection: Yes normal to inspection Palpation (GI): Soft to palpation Auscultation: normal bowel sounds Skin General skin exam: no rashes or lesions noted Neuro General: patient oriented x3 Extrem General: Yes normal to inspection, No no pedal edema and No calf tenderness Psych Appearance: grossly normal Mental Status: mental status grossly normal Speech and movement: Normal speech and movement present Office Procedures EKG Details: EKG today showed underlying sinus bradycardia at 43 beats per minute, nonspecific ST changes, [place], [place]. [id number], Complete Assessment & Plan Assessment & Plan (1) Sinus bradycardia: Code(s): R00.1 - Bradycardia, unspecified Category: Medical Plan: 11/15/2024- Holter showed baseline normal sinus rhythm with average 47 beats per minute, occasional PACs and PVCs noted with 14 beat run of wide complex, appearing to be most likely consistent with idioventricular rhythm. Consequently his metoprolol dose has been reduced to 12.5 mg twice daily to mitigate the risk of further lowering his heart rate. Patient asking about pacemaker, discussed in detail its indications. (2) A-fib: Comment: Status post cardioversion Code(s): I48.91 - Unspecified atrial fibrillation Category: Medical Plan: Continue with full oral anticoagulation therapy with Eliquis. Patient denies any complaints of bleeding. Due to his current sinus bradycardia, can not add antiarrhythmic medication. (3) Dyspnea: Code(s): R06.00 - Dyspnea, unspecified Category: Medical Plan: Patient's shortness of breath maybe related to his recent viral illness, however, we will proceed with an echocardiogram to assess for any valvular or structural abnormalities. Additionally, a treadmill stress test will be ordered to evaluate for any ischemic changes. (4) NSTEMI (non-ST elevated myocardial infarction): Code(s): I21.4 - Non-ST elevation (NSTEMI) myocardial infarction Category: Medical Plan: Status post PDA stenting. Continue with Plavix therapy. Continue high-dose statin therapy. Patient's blood pressure is slightly elevated, though he reports it has been stable at home. Advised to send a blood pressure log through the portal for further monitoring. Continue lisinopril for now. Recommend following a heart healthy diet, engaging in regular exercise, weight loss, prior to his blood pressure and cholesterol management. Patient will follow-up after these tests. In the interim, patient will call us with any concerns. This note was generated using voice recognition software. While every effort has been made to ensure accuracy and proper electrical tech/project manager, there may be occasional errors that could affect the content or meaning of the described symptoms. Orders: Orders CA stress test Today R06.00 - Dyspnea, unspecified CA echo transthoracic complete Today R06.00 - Dyspnea, unspecified AMB EKG-In Office Today I48.91 - Unspecified atrial fibrillation Medications: Changed From metoprolol succinate ER 25 mg PO BID 180 tabs 3RF To metoprolol succinate ER 12.5 mg (1/2 x 25 mg) PO BID 180 tabs 3RF Coding Level of Care Code Est Pt Level 4 (73941) Diagnoses Sinus bradycardia R00.1 A-fib I48.91 Dyspnea R06.00 NSTEMI (non-ST elevated myocardial infarction) I21.4 CPT Codes EKG - CPT: 84600-[id number], Complete ([id number]) Time Spent (min) 31 Comment Time spent in reviewing the chart, test results, assessment, counseling and documentation.
[2024-11-24 12:58] VITALS: BP 150/72; PULSE 43; BMI 37.3
== END 2024-11-24 13:42 | disposition home or self-care (01) ==
DX: R00.1 Bradycardia, unspecified (principal); I48.91 Unspecified atrial fibrillation; R06.00 Dyspnea, unspecified; I21.4 Non-ST elevation (NSTEMI) myocardial infarction
CPT/HCPCS: 93010; 99214

== ENCOUNTER → 2024-11-24 12:42 | Outpatient (BNVA) | payer OTHER, SELFPAY | DX: R00.1 Bradycardia, unspecified (principal); I48.91 Unspecified atrial fibrillation; R06.00 Dyspnea, unspecified; I21.4 Non-ST elevation (NSTEMI) myocardial infarction; Z79.01 Long term (current) use of anticoagulants; Z79.02 Long term (current) use of antithrombotics/antiplatelets | CPT/HCPCS: 93005 ==

== ENCOUNTER → 2024-12-14 08:37 | Outpatient (REF) | payer OTHER, SELFPAY ==
--- NOTE | 2024-12-14 08:42 | CA_ITS ---
Acquisition Time: 2024-12-14 09:58:51 Total Exercise Time: 00:06:13 Test Indications: Abnormal ECG,Dyspnea,Fatigue Medications: ELIQUIS ATORVASTATIN CLOPIDOGREL LISINOPRIL METOPROLOL Protocol: PIERRE Max HR: 120 BPM 77% of Pred: 155 BPM Max BP: 170/70 mmHG Max Work Load: 7.1 METS Exercise Stress Test with exercise 6 mins 10 secs of Pierre Protocol, achieving 76% MPHR, requested to stop due to knee discomfort and SOB, no chest discomfort, with isolated PACs and PVCs, with normotensive response to exercise. No EKG changes at the achieved workload. In recovery, breathing returned to baseline. Test reviewed with Dr. Wilson. Referred By: Kevin Martinez Electronically Signed By: Kevin Martinez
--- NOTE | 2024-12-14 08:42 | CA_ITS ---
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 The calculated ejection fraction is 68% by biplane method. - Moderate asymmetric septal hypertrophy. - Evidence suggests grade II (moderate) diastolic dysfunction. - No obvious valvular pathology seen on this study. Findings Procedure Information Contrast agent, definity, is being given per protocol without apparent complications. Left Ventricle Normal left ventricular cavity size. There is mildly increased left ventricular wall thickness. The left ventricular systolic function is normal. The calculated ejection fraction is 68% by biplane method. Evidence suggests grade II (moderate) diastolic dysfunction. Moderate asymmetric septal hypertrophy. Right Ventricle Moderately increased right ventricular cavity size. There is normal right ventricular systolic function. Atria The left atrium is moderately dilated. The right atrium is normal in size. Aortic Valve There is a normal trileaflet aortic valve. There is mild calcification of the aortic valve. There is no aortic valve stenosis. There is no aortic valve regurgitation. Mitral Valve There is mild mitral annular calcification. There is no mitral valve regurgitation. There is no mitral valve stenosis. Pulmonic Valve The pulmonic valve is likely normal. Tricuspid Valve There is trace tricuspid valve regurgitation. There is no evidence of pulmonary hypertension. Great Vessels The asc aorta is normal in size. Venous The inferior vena cava is mildly dilated and collapses greater than 50% with inspiration. Pericardium/Pleural There is no evidence of pericardial effusion. Prior Study Comparison No prior study available for comparison. Recommendations, Care & Conclusions No obvious valvular pathology seen on this study. Measurements 2D Linear Measurements IVSd: 1.26 0.6-0.9/0.6-1.0 cm LVIDd: 4.96 3.9-5.3/4.2-5.9 cm LVIDd Index: 2.01 2.4-3.2/2.2-3.1 cm/m2 LVIDs: 3.33 2.0-3.6 cm LVPWd: 1.04 0.7-1.1 cm LA Diam: 4.60 2.7-3.8/3.0-4.0 cm LAIDs Index: 1.86 1.5-2.3 cm/m2 LV Mass: 271.06 67-162/88-224 g LV Mass Index: 109.74 43-95/49-115 g/m2 LVOT Diam: 2.10 3.0+(-)1.3 cm 2D Systolic Function EF 4C: 69.80 >55% EF 2C: 64.80 >55% EF BiP: 68.20 >55% Mitral Valve MV Pk E: 0.89 MV PK A: 0.44 MV Decel Time: 296.00 E/A: 2.00 E'Lateral: 6.31 E'Medial: 5.77 E/E' Med: 15.40 E/E' Lat: 14.10 PHT: 87.00 MVA PHT: 2.53 Decel [place]: 3.00 Aortic Valve AoV Pk Hi: 2.06 AoV Mn Hi: 1.50 AoV VTI: 0.51 AoV Pk Grad: 17.00 Aov Mn Grad: 10.00 MADYSON Cont.VTI: 2.26 LVOT LVOT Pk Hi: 1.44 LVOT Mn Hi: 1.01 LVOT VTI: 0.34 LVOT Pk Grad: 8.00 LVOT Mn Grad: 4.00 LVOT Diam: 2.10 LVOT Area: 3.46 Diastolic Function MV Pk E: 0.89 MV Pk A: 0.44 E/A: 2.00 E'Medial: 5.77 E/E' Med: 15.40 E' Laterial: 6.31 E/E' Lat: 14.10 Right Ventricle TAPSE (mm): 34.30 TVS' Hi: 17.90 Tricuspid Valve TR Pk Hi: 1.60 TR Pk Grad: 10.00 RA Press: 8.00 RVSP: 18.00 Great Vessels Aorta Sinus of Valsalva: 3.49 2.0-3.5 cm Ao Asc: 3.90 2.1-3.4 cm Updated in Other Vendor System with Status of Final Gopal Wilson MD electronically signed on 12/14/2024 11:50:25 AM with status of Final
== END ==
LOC: HO.CARD 08:37
DX: R06.00 Dyspnea, unspecified (principal)
CPT/HCPCS: 93017; 93306; Q9957

== ENCOUNTER → 2024-12-14 08:42 | Outpatient (BNV) | payer OTHER, SELFPAY | DX: I42.2 Other hypertrophic cardiomyopathy (principal); I35.8 Other nonrheumatic aortic valve disorders; I34.81 Nonrheumatic mitral (valve) annulus calcification; R06.02 Shortness of breath; I49.1 Atrial premature depolarization; I49.3 Ventricular premature depolarization | CPT/HCPCS: 93016; 93018; 93320; 93325; 93350; 93352 ==

== ENCOUNTER 2024-12-22 13:51 | Outpatient (AMB) | payer OTHER, SELFPAY ==
[2024-12-22 13:55] VITALS: BP 132/70; PULSE 44; BMI 37.7
--- NOTE | 2024-12-22 13:55 | A.OFFVIS_ITS ---
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 Allergies No Known Allergies Allergy (Verified 12/22/24 13:57) Medication List - Last Reconciled 12/22/24 by Veronica Tucker, DEMARCO-C apixaban (Eliquis) 5 mg PO BID 90 days atorvastatin 80 mg PO BEDTIME clopidogrel 75 mg PO DAILY furosemide 40 mg PO DAILY lisinopril 20 mg PO DAILY metoprolol succinate ER 12.5 mg (1/2 x 25 mg) PO BID HPI HPI f/up per km: Details: Ty is a 64-year-old male with past medical history of obesity, prior smoking who had NSTEMI 09/23/2024 with cardiac catheterization showing severe right PDA stenosis EDINSON was placed, he also had new finding of atrial fibrillation. on follow-up visit he was noted to have persistent atrial fibrillation then after 1 month of anticoagulation he underwent a cardioversion on 11/09/2024. post cardioversion he was noted to have sinus bradycardia. A Holter monitor had shown sinus Agusto with average heart rate 47 beats per minute. On follow-up visit he continued to have sinus bradycardia and his metoprolol dose was reduced. Today he reports that he has been having shortness of breath since the cardioversion procedure. He had gone to cardiac rehab and they did not start exercise with him due to his shortness of breath symptom. Labs were done by his PCP and BNP was mildly elevated at 154. He was started on Lasix and says that his breathing improved after that. He still has shortness of breath with exertion but not as bad. Has not had any chest pain, pressure, palpitations. He does describe chest wall soreness, tenderness and discomfort in his extremities. No lightheadedness, presyncope, syncope. He has been doing only light physical activity. No bleeding issues reported. is present. [facility] Medical History NSTEMI (non-ST elevated myocardial infarction) Family History Mother High blood pressure Paroxysmal A-fib Father No problems noted. Social History Alcohol intake: never Patient Tobacco Use Status: Former Tobacco user Tobacco use type: Cigarette e-Cigarette/Vaping Use: Former Use Review of Systems Const All systems reviewed & are unremarkable except as noted in HPI and below ENT Denies dizziness Card Denies chest pain, Denies chest pain at rest, Denies chest pain with activity, Denies rapid heart rate, Denies pedal edema, Denies edema, Denies leg edema, Denies lightheadedness, Denies palpitations, Reports dyspnea, Reports dyspnea on exertion and Denies orthopnea Resp Denies cough, Reports dyspnea and Reports dyspnea on exertion GI Denies hematochezia and Denies change in stool character Musc Details: muscle and joint discomfort Denies abnormal gait, Denies limited range of motion, Denies muscle cramps, Denies muscle weakness, Denies numbness, Denies radiating pain into limb, Denies stiffness and Denies tingling Neuro Denies abnormal gait, Denies dizziness, Denies numbness and Denies tingling Endo Denies palpitations Physical Exam Vital Signs: Last Vital Signs Pulse 44 L 12/22/24 13:55 BP 132/70 12/22/24 13:55 BMI result Body Mass Index 37.7 Const General: cooperative, healthy appearing, comfortable and no acute distress Orientation/consciousness: patient oriented x3 Neck Neck: Yes normal visual inspection and Yes no JVD Resp Effort & Inspection: normal respiratory effort Auscultation: clear to auscultation bilaterally, no rales, no rhonchi and no wheezes Cardio Jugular venous distension: no JVD Rate: regular rate Rhythm: regular rhythm Heart sounds: S1 normal heart sound present, S2 normal heart sound present, no murmurs and no rubs Neuro General: patient oriented x3 Extrem General: Yes normal to inspection, No no pedal edema and No calf tenderness Psych Appearance: grossly normal Mental Status: mental status grossly normal Speech and movement: Normal speech and movement present Office Procedures EKG Details: Today, read by me, Marked sinus bradycardia, rate 44, QTc 420ms [id number], Complete Assessment & Plan Assessment & Plan (1) Sinus bradycardia: Code(s): R00.1 - Bradycardia, unspecified Category: Medical Plan: patient had been in persistent atrial fibrillation. he was put on metoprolol succinate 25 mg b.i.d.. He underwent Cardioversion on 11/09/2024 and was successfully converted to sinus bradycardia. He reports shortness of breath since that time. Holter monitor done on 11/15/2024 showed sinus Agusot with average heart rate 47 beats per minute, heart rate less than 60 b/min 94.5% of time, occasional PVCs and PACs, one 4 beat accelerated idioventricular rhythm. On last visit his metoprolol dose was reduced. His shortness of breath persisted and he was not able to start cardiac rehab. His PCP did labs showing BNP 154. He was started on Lasix which did improve his shortness of breath some. Exercise stress test done 12/14/2024 shows exercise 6 minutes with moderate shortness of breath achieving only 76% MPHR. EKG done today showing sinus bradycardia, rate 44. He currently has symptomatic bradycardia with chronotropic incompetence. Will have him stop metoprolol. Periodic home pulse checks. Call if symptoms of shortness of breath persist. Cardiology follow-up in 1 month, sooner if needed. I had wanted Holter prior to that visit however patient travels a good distance to get to this office so we will re-evaluate the need for a Holter when he comes to see me next. (2) A-fib: Comment: Status post cardioversion Code(s): I48.91 - Unspecified atrial fibrillation Category: Medical Plan: Newer persistent atrial fibrillation on metoprolol for heart rate control with cardioversion 11/09/24, with conversion to sinus bradycardia. At this time he remains in sinus bradycardia. Will be having him stop metoprolol. Dr. Borrero informed. Continue Eliquis for anticoagulation. Patient informed there is a chance he may go back into atrial fibrillation. Instructed to notify this office and/ or seek emergency care if needed. (3) Dyspnea: Code(s): R06.00 - Dyspnea, unspecified Category: Medical Plan: shortness of breath as describe above. On echo he does have grade 2 diastolic dysfunction and he has marked sinus bradycardia. His shortness of breath had been worse but it did improve following Lasix use. He likely developed some congestion mild Congestive heart failure. On exam today he does not appear fluid overloaded. He is currently taking Lasix 40 mg daily. I will b e stopping beta-maty to see his heart rate response And if symptoms improve. Will have him continue Lasix at this time. (4) NSTEMI (non-ST elevated myocardial infarction): Code(s): I21.4 - Non-ST elevation (NSTEMI) myocardial infarction Category: Medical Plan: NSTEMI 09/23/2024. Symptoms of chest heaviness, shortness of breath, bilateral arm numbness, discomfort in his neck had and nausea. [place] [facility] [place] ost[place] right PDA stenosis, EDINSON placed, minimal disease elsewhere. He has had no recurrent chest discomfort. He does have shortness of breath as above. EKG today does not show signs of ischemia. An exercise stress test done 12/14/2024 showed no EKG changes of ischemia at achieved workload. An echocardiogram done 12/14/2024 showed EF 68%, moderate asymmetric septal hypertrophy and grade 2 diastolic dysfunction. Will continue with med management. He is not on aspirin since he is on Eliquis. He is on Plavix. He is also on high-dose atorvastatin and is reporting muscle and joint aches. Instructed him to try taking coenzyme Q10 along with statin. Labs done by PCP. He is due for a fasting lipid profile. Signs and symptoms of angina reviewed with him. Emergency care if ever needed. (5) CAD (coronary artery disease): Code(s): I25.10 - Atherosclerotic heart disease of [place] coronary artery without angina pectoris Category: Medical Plan Time spent on chart review, documentation, interview and assessment Medications: Changed From furosemide 20 mg PO DAILY 30 tabs 0RF To furosemide 40 mg PO DAILY Coding Level of Care Code Est Pt Level 4 (64546) Complex EM visit Add On G2211 Diagnoses Sinus bradycardia R00.1 A-fib I48.91 Dyspnea R06.00 NSTEMI (non-ST elevated myocardial infarction) I21.4 CAD (coronary artery disease) I25.10 CPT Codes EKG - CPT: 35509-[id number], Complete ([id number]) Time Spent (min) 36
== END 2024-12-22 15:01 | disposition home or self-care (01) ==
PROVIDERS: Visit Provider Nurse Practitioner Family
DX: R00.1 Bradycardia, unspecified (principal); I48.91 Unspecified atrial fibrillation; R06.00 Dyspnea, unspecified; I21.4 Non-ST elevation (NSTEMI) myocardial infarction; I25.10 Atherosclerotic heart disease of native coronary artery without angina pectoris
CPT/HCPCS: 93010; 99214

== ENCOUNTER → 2024-12-22 13:51 | Outpatient (BNVA) | payer OTHER, SELFPAY | PROVIDERS: Visit Provider Nurse Practitioner Family | DX: R00.1 Bradycardia, unspecified (principal); I48.91 Unspecified atrial fibrillation; R06.00 Dyspnea, unspecified; I25.10 Atherosclerotic heart disease of native coronary artery without angina pectoris; I25.2 Old myocardial infarction; Z79.01 Long term (current) use of anticoagulants; Z79.899 Other long term (current) drug therapy | CPT/HCPCS: 93005 ==

== ENCOUNTER 2025-01-23 09:56 | Outpatient (AMB) | payer OTHER, SELFPAY ==
[2025-01-23 10:14] VITALS: BP 124/62; PULSE 51; BMI 37.8
--- NOTE | 2025-01-23 10:14 | MHC.OFFVIS ---
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 Required: No Airport Operations Officer: Airport Operations Officer Present Allergies No Known Allergies Allergy (Verified 01/23/25 10:16) Medication List - Last Reconciled 01/23/25 by Veronica Tucker, DEMARCO-C apixaban (Eliquis) 5 mg PO BID 90 days atorvastatin 80 mg PO BEDTIME clopidogrel 75 mg PO DAILY furosemide 40 mg PO DAILY lisinopril 20 mg PO DAILY HPI HPI 1month follow up: Details: Ty is a 64-year-old male with past medical history of obesity, prior smoking, NSTEMI 09/23/2024 with cardiac catheterization showing severe right PDA stenosis EDINSON was placed, Newer atrial fibrillation s/p cardioversion who then had sinus bradycardia and metoprolol was stopped. Today he reports that he has been having less shortness of breath now that he is off metoprolol. He has been attending cardiac rehab and he states he is feeling well with that exercise. They have not told him that his heart rates are not rising with exercise. He has been taking his medications as directed. Has not had any chest pain, pressure, palpitations. He still has some discomfort in his extremities he relates to the cholesterol-lowering agent. He did try coenzyme Q10 but did not feel he had much benefit from it. No bleeding issues reported. is present. [facility] Medical History (Updated 01/23/25 @ 18:28 by Veronica Tucker, DEMARCO-C) CAD (coronary artery disease) A-fib NSTEMI (non-ST elevated myocardial infarction) Family History Mother High blood pressure Paroxysmal A-fib Father No problems noted. Social History Alcohol intake: never Patient Tobacco Use Status: Former Tobacco user Tobacco use type: Cigarette e-Cigarette/Vaping Use: Former Use Review of Systems Const All systems reviewed & are unremarkable except as noted in HPI and below ENT Denies dizziness Card Denies chest pain, Denies chest pain at rest, Denies chest pain with activity, Denies rapid heart rate, Denies pedal edema, Denies edema, Denies leg edema, Denies lightheadedness, Denies palpitations, Denies dyspnea, Reports dyspnea on exertion (for 5 days recently) and Denies orthopnea Resp Denies cough, Denies dyspnea and Reports dyspnea on exertion (for 5 days recently) GI Denies hematochezia and Denies change in stool character Musc Details: muscle discomfort Denies abnormal gait, Denies limited range of motion, Denies muscle cramps, Denies muscle weakness, Denies numbness, Denies radiating pain into limb, Denies stiffness and Denies tingling Neuro Denies abnormal gait, Denies dizziness, Denies numbness and Denies tingling Endo Denies palpitations Physical Exam Vital Signs: Last Vital Signs Pulse 51 01/23/25 10:14 BP 124/62 01/23/25 10:14 BMI result Body Mass Index 37.8 Const General: cooperative, healthy appearing, comfortable and no acute distress Orientation/consciousness: patient oriented x3 Neck Neck: Yes normal visual inspection and Yes no JVD Resp Effort & Inspection: normal respiratory effort Auscultation: clear to auscultation bilaterally, no rales, no rhonchi and no wheezes Cardio Jugular venous distension: no JVD Rate: bradycardic Rhythm: regular rhythm Heart sounds: S1 normal heart sound present, S2 normal heart sound present, no murmurs and no rubs Neuro General: patient oriented x3 Extrem General: Yes normal to inspection, No no pedal edema and No calf tenderness Psych Appearance: grossly normal Mental Status: mental status grossly normal Speech and movement: Normal speech and movement present Office Procedures EKG Details: Today, read by me, Sinus bradycardia, rate 51, Qtc 435ms [id number], Complete Assessment & Plan Assessment & Plan (1) Sinus bradycardia: Code(s): R00.1 - Bradycardia, unspecified Category: Medical Plan: Cardioversion on 11/09/2024 and was successfully converted to sinus bradycardia. Follow-up Holter monitor done on 11/15/2024 showed sinus Agusto with average heart rate 47 beats per minute, heart rate less than 60 b/min 94.5% of time, occasional PVCs and PACs, one 4 beat accelerated idioventricular rhythm. his metoprolol dose was 1st reduced then eventually stopped. He had evidence of symptomatic bradycardia last visit. His BNP had been mildly elevated at 154 and his PCP started him on Lasix 40 mg daily. At this point he does not appear fluid overloaded. His EKG today shows sinus bradycardia, rate 51. He is not on any heart rate slowing medications. Will have a Holter monitor applied today to assess average heart rate and for any recurrent AFib. He is agreeable to this plan. Keep him off all rate slowing agents. He likely has some degree of sinus node dysfunction. Cardiology follow-up 3 months, sooner if needed (2) A-fib: Comment: Status post cardioversion Code(s): I48.91 - Unspecified atrial fibrillation Category: Medical Plan: Newer persistent atrial fibrillation and he was on metoprolol for heart rate control with cardioversion 11/09/24, he converted to sinus bradycardia. metoprolol was stopped as above. He has not had any AFib. Checking Holter monitor. Continue Eliquis. (3) Dyspnea: Code(s): R06.00 - Dyspnea, unspecified Category: Medical Plan: Prior reports of shortness of breath with mildly elevated BNP. He had sinus bradycardia with average heart rate in the 40s, symptomatic which likely contributed to some fluid retention. His echo had shown grade 2 diastolic dysfunction which also contributed. He is now on Lasix 40 mg daily and has no signs of fluid overloaded. His prior shortness of breath has resolved. (4) NSTEMI (non-ST elevated myocardial infarction): Code(s): I21.4 - Non-ST elevation (NSTEMI) myocardial infarction Category: Medical Plan: NSTEMI 09/23/2024. Symptoms of chest heaviness, shortness of breath, bilateral arm numbness, discomfort in his neck had and nausea. Cardiac catheterization at [facility] [place] showed severe ostial right PDA stenosis, EDINSON placed, minimal disease elsewhere. An exercise stress test done 12/14/2024 showed no EKG changes of ischemia at achieved workload. An echocardiogram done 12/14/2024 showed EF 68%, moderate asymmetric septal hypertrophy and grade 2 diastolic dysfunction. He has had no recurrent chest discomfort. Continue with current med management. He is not on aspirin since he is on Eliquis. He is on Plavix Uninterrupted for at least 1 year post stent. He is also on high-dose atorvastatin with ideal LDL goal less than 70. Continue coenzyme Q10. He is due for a fasting lipid profile, Lft - I gave him lab slips for these tests. Signs and symptoms of angina reviewed with him. Emergency care if ever needed. (5) CAD (coronary artery disease): Comment: Cardiac catheterization 09/23/2024 shows mid LAD 20% stenosis, proximal LAD 20% stenosis, proximal circumflex 15% stenosis, right PDA ostial 90% stenosis, proximal RCA 15% stenosis, EDINSON to the right PDA. Code(s): I25.10 - Atherosclerotic heart disease of [place] coronary artery without angina pectoris Category: Medical (6) Hyperlipidemia: Code(s): E78.5 - Hyperlipidemia, unspecified Category: Medical Plan: as above ideal LDL goal less than 70. Fasting send LFT pending. Continue high-dose atorvastatin. Plan Time spent on chart review, documentation, interview and assessment Orders: Orders ECG 3 day holter monitor Today I48.91 - Unspecified atrial fibrillation, R00.1 - Bradycardia, unspecified Liver Panel Today E78.5 - Hyperlipidemia, unspecified Lipid Panel Today E78.5 - Hyperlipidemia, unspecified Coding Level of Care Code Est Pt Level 4 (66546) Complex EM visit Add On G2211 Diagnoses Sinus bradycardia R00.1 A-fib I48.91 Dyspnea R06.00 NSTEMI (non-ST elevated myocardial infarction) I21.4 CAD (coronary artery disease) I25.10 Hyperlipidemia E78.5 CPT Codes EKG - CPT: 45327-[id number], Complete ([id number]) Time Spent (min) 30
--- OUTSIDE RECORDS SUMMARY | 2025-01-23 11:02 | XMS_ITS | Continuity of Care Document ---
Author Organization [facility] Address [address] [place] [id number] Care Team Providers Care Exercise Science Internship Name Role Phone Brando More MD Primary Care Physician [phone] Encounter [facility] [place] Date(s): 12/21/24 - 01/20/25 [facility] [address] [place] [id number] Encounter Type: Triage Allergies, Adverse Reactions, Alerts Substance Criticality Severity Reaction Reaction Severity Status Bee Stings Active [place] Active Onions Active Medications apixaban 5 mg oral tablet = 5 mg, By Mouth, 2 times a day, # 60 tablet, 0 Refills, Maintenance, 09/24/24 8:03:00 AM EST, Tablet, [facility], Partial fill upon patient [...] 0 Refills, Maintenance, 09/24/24 10:50:00 AM EST,Tablet, [facility], Partial fill upon patient [...] 09/24/24 8:04:00 AM EST,Route to Pharmacy Electronically, [facility], Partial fill upon patient [...] 09/24/24 8:04:00 AM EST,Route to Pharmacy Electronically, [facility], Partial fill upon patient [...] Refills, Maintenance, 09/24/24 11:11:00 AM EST, Gum, [facility], Partial fill upon [...] Refills, Maintenance, 09/24/24 11:11:00 AM EST, Patch, [facility], Partial fill upon patient [...] Team Personnel Name: Jossie Lennon RN Position: [facility] RN Member Role: Primary Care Nurse Name: Brando More MD Position: [facility] Outreach Member Role: PCP Address: [address] [place] [address] Telecom: Care Team Related Persons Name: SHIRLEY GLASGOW Insurance Providers Guarantor name: JULIEN Health Plan Information #: 1 Payer: [employer] Member Number: NA Policy Number: NA Group Number: NA
== END 2025-01-23 10:57 | disposition home or self-care (01) ==
PROVIDERS: Visit Provider Nurse Practitioner Family
DX: R00.1 Bradycardia, unspecified (principal); I48.91 Unspecified atrial fibrillation; R06.00 Dyspnea, unspecified; I21.4 Non-ST elevation (NSTEMI) myocardial infarction; I25.10 Atherosclerotic heart disease of native coronary artery without angina pectoris; E78.5 Hyperlipidemia, unspecified
CPT/HCPCS: 93010; 99214

== ENCOUNTER → 2025-01-23 09:56 | Outpatient (BNVA) | payer OTHER, SELFPAY | PROVIDERS: Visit Provider Nurse Practitioner Family | DX: I21.4 Non-ST elevation (NSTEMI) myocardial infarction (principal); I25.10 Atherosclerotic heart disease of native coronary artery without angina pectoris; E66.9 Obesity, unspecified; R00.1 Bradycardia, unspecified; I48.91 Unspecified atrial fibrillation; R06.00 Dyspnea, unspecified; E78.5 Hyperlipidemia, unspecified; Z87.891 Personal history of nicotine dependence; Z68.37 Body mass index [BMI] 37.0-37.9, adult | CPT/HCPCS: 93005 ==

== ENCOUNTER → 2025-01-23 11:11 | Outpatient (REF) | payer OTHER, SELFPAY | LOC: HO.CARD 11:11 | PROVIDERS: Visit Provider Nurse Practitioner Family | DX: R00.1 Bradycardia, unspecified (principal); I48.91 Unspecified atrial fibrillation | CPT/HCPCS: 93242 ==

== ENCOUNTER 2025-04-18 09:47 | Outpatient (AMB) | payer OTHER, SELFPAY ==
[2025-04-18 10:09] VITALS: BP 104/62; PULSE 54; BMI 37.1
--- NOTE | 2025-04-18 10:09 | MHC.OFFVIS ---
Vital Signs 04/18/25 10:09 Height 6 ft 1 in Weight 281 lb 4.957 oz BMI 37.1 BP 104/62 Blood Pressure Location Lt brachial Position Sitting Pulse 54 Pulse Source Pulse Oximeter Intake Visit Reasons: 3 mth s/p holter [place] Hand Required: No Allergies No Known Allergies Allergy (Verified 04/18/25 10:12) Medication List - Last Reconciled 04/18/25 by Veronica Tucker, [employer]PERVISOR-C apixaban (Eliquis) 5 mg PO BID 90 days atorvastatin 80 mg PO BEDTIME clopidogrel 75 mg PO DAILY furosemide 40 mg (2 x 20 mg) PO DAILY lisinopril 20 mg PO DAILY HPI HPI 3 mth s/p holter: Details: Ty is a 64-year-old male with past medical history of obesity, prior smoking, NSTEMI 09/23/2024 with cardiac catheterization showing severe right PDA stenosis EDINSON was placed, Newer atrial fibrillation s/p cardioversion who then had sinus bradycardia and metoprolol was stopped. Today he reports doing well since his last visit 01/23/2025. He does notice an occasional aching in his chest. He does excessive workouts including cardio and weight lifting with bench pressing. He has been involved in exercise for many years. He does not get any chest discomfort when doing cardio exercise. His exercise capacity exceeded what was done in cardiac rehab. He notices his heart rates typically run in the 50s. No heart palpitations that are concerning for AFib. No shortness of breath, PND, orthopnea or edema. He tried coenzyme Q10 without much affect and has since stopped. He will get occasional muscle aching she tolerates. Taking meds as directed. [facility] Medical History CAD (coronary artery disease) A-fib NSTEMI (non-ST elevated myocardial infarction) Family History Mother High blood pressure Paroxysmal A-fib Father No problems noted. Social History Alcohol intake: never Patient Tobacco Use Status: Former Tobacco user Tobacco use type: Cigarette e-Cigarette/Vaping Use: Former Use Review of Systems Const All systems reviewed & are unremarkable except as noted in HPI and below ENT Denies dizziness Card Details: Aching in chest at times, localized tenderness to palpation Denies chest pain, Denies chest pain at rest, Denies chest pain with activity, Denies rapid heart rate, Denies pedal edema, Denies edema, Denies leg edema, Denies lightheadedness, Denies palpitations, Denies dyspnea, Denies dyspnea on exertion and Denies orthopnea Resp Denies cough, Denies dyspnea and Denies dyspnea on exertion GI Denies hematochezia and Denies change in stool character Musc Denies abnormal gait, Denies limited range of motion, Denies muscle cramps, Denies muscle weakness, Denies numbness, Denies radiating pain into limb, Denies stiffness and Denies tingling Neuro Denies abnormal gait, Denies dizziness, Denies numbness and Denies tingling Endo Denies palpitations Physical Exam Vital Signs: Last Vital Signs Pulse 54 04/18/25 10:09 BP 104/62 04/18/25 10:09 BMI result Body Mass Index 37.1 Const General: cooperative, healthy appearing, comfortable and no acute distress Orientation/consciousness: patient oriented x3 Neck Neck: Yes normal visual inspection and Yes no JVD Resp Effort & Inspection: normal respiratory effort Auscultation: clear to auscultation bilaterally, no rales, no rhonchi and no wheezes Cardio Other: Localized tender area to left of lower sternal border Jugular venous distension: no JVD Rate: bradycardic Rhythm: regular rhythm Heart sounds: S1 normal heart sound present, S2 normal heart sound present, no murmurs and no rubs Neuro General: patient oriented x3 Extrem General: Yes normal to inspection, No no pedal edema and No calf tenderness Psych Appearance: grossly normal Mental Status: mental status grossly normal Speech and movement: Normal speech and movement present Assessment & Plan Assessment & Plan (1) NSTEMI (non-ST elevated myocardial infarction): Code(s): I21.4 - Non-ST elevation (NSTEMI) myocardial infarction Category: Medical Plan: NSTEMI 09/23/2024. Symptoms of chest heaviness, shortness of breath, bilateral arm numbness, discomfort in his neck and nausea. Cardiac catheter[place] [facility] [place] showed severe ostial right PDA stenosis, EDINSON placed, minimal disease elsewhere. An exercise stress test done 12/14/2024 showed no EKG changes of ischemia at achieved workload. An echocardiogram done 12/14/2024 showed EF 68%, moderate asymmetric septal hypertrophy and grade 2 diastolic dysfunction. Currently no reports of anginal symptoms. He is not on aspirin since he is on Eliquis. Continue Plavix uninterrupted for 1 year post stent. Continue high-dose atorvastatin with ideal LDL goal less than 70. He is due for a fasting lipid profile, Lft - I gave him lab slips for these tests last visit. Signs and symptoms of angina reviewed with him. Cardiology follow-up 6 months, sooner if needed (2) A-fib: Comment: Status post cardioversion Code(s): I48.91 - Unspecified atrial fibrillation Category: Medical Plan: Persistent atrial fibrillation and he was on metoprolol for heart rate control with cardioversion 11/09/24. He converted to sinus bradycardia and metoprolol was stopped. Holter monitor done 01/23/2025 for 3 days shows sinus rhythm with average heart rate 53 beats per minute, frequent sinus bradycardia with heart rate less than 60, 82% of the time. He has not had any known AFib. Continue Eliquis. Keep off rate slowing medication. (3) Sinus bradycardia: Code(s): R00.1 - Bradycardia, unspecified Category: Medical Plan: Sinus bradycardia post cardioversion as above. Holter shows frequent sinus bradycardia. He exercises routinely including cardio and likely has good cardiac tone. Continue to avoid rate slowing medications. (4) Dyspnea: Code(s): R06.00 - Dyspnea, unspecified Category: Medical Plan: Prior reports of shortness of breath with mildly elevated BNP. He had sinus bradycardia with average heart rate in the 40s, symptomatic, metoprolol was stopped. Low heart rate may have contributed to some fluid retention. His echo also shows grade 2 diastolic dysfunction which also contributes to fluid retention. He is now on Lasix 40 mg daily and has no signs of fluid overloaded. His prior shortness of breath has resolved. (5) CAD (coronary artery disease): Comment: Cardiac catheterization 09/23/2024 shows mid LAD 20% stenosis, proximal LAD 20% stenosis, proximal circumflex 15% stenosis, right PDA ostial 90% stenosis, proximal RCA 15% stenosis, EDINSON to the right PDA. Code(s): I25.10 - Atherosclerotic heart disease of [place] coronary artery without angina pectoris Category: Medical Plan: As above (6) Hyperlipidemia: Code(s): E78.5 - Hyperlipidemia, unspecified Category: Medical Plan: [place] LDL goal less than 70. Fasting send LFT pending. Continue high-dose atorvastatin. Plan Time spent on chart review, documentation, interview and assessment Coding Level of Care Code Est Pt Level 4 (87731) Complex EM visit Add On G2211 Diagnoses NSTEMI (non-ST elevated myocardial infarction) I21.4 A-fib I48.91 Sinus bradycardia R00.1 Dyspnea R06.00 CAD (coronary artery disease) I25.10 Hyperlipidemia E78.5 Time Spent (min) 30
== END 2025-04-18 10:49 | disposition home or self-care (01) ==
LOC: HO.HCS 09:48
PROVIDERS: Visit Provider Nurse Practitioner Family
DX: I21.4 Non-ST elevation (NSTEMI) myocardial infarction (principal); I48.91 Unspecified atrial fibrillation; R00.1 Bradycardia, unspecified; R06.00 Dyspnea, unspecified; I25.10 Atherosclerotic heart disease of native coronary artery without angina pectoris; E78.5 Hyperlipidemia, unspecified
CPT/HCPCS: 99214; G2211

== ENCOUNTER 2025-09-14 10:12 | Outpatient (AMB) | payer OTHER, SELFPAY ==
--- NOTE | 2025-09-14 10:28 | MHC.OFFVIS ---
Vital Signs 09/14/25 10:29 Height 6 ft 1 in Weight 284 lb 6.341 oz BMI 37.5 BP 118/60 Blood Pressure Location Lt brachial Position Sitting Pulse 79 Pulse Source Monitor Intake Visit Reasons: ED follow up/[facility]/pneumonia Allergies No Known Allergies Allergy (Verified 04/18/25 10:12) Medication List - Last Reconciled 09/14/25 by Veronica Tucker KELP [employer] GATHERER-C apixaban (Eliquis) 5 mg PO BID 90 days atorvastatin 80 mg PO BEDTIME clopidogrel 75 mg PO DAILY furosemide 40 mg (2 x 20 mg) PO DAILY lisinopril 20 mg PO DAILY HPI HPI ED follow up/[facility]/pneumonia: Details: Ty is a 64-year-old male with past medical history of obesity, prior smoking, NSTEMI 09/23/2024 with cardiac catheterization showing severe right PDA stenosis EDINSON was placed, Newer atrial fibrillation s/p cardioversion 11/09/24, sinus bradycardia, who was recently seen at [facility] with febrile illness. He was treated with Zithromax with improvement in his condition. Today he reports that he was ill with GI type symptoms, excess diarrhea 2 weeks ago. His symptoms improved for a day or 2 then came back. He then had fevers and eventually was seen at the [facility] ED. He states testing was all negative and they put him on antibiotics to see if it would help which it did. He is still experiencing weakness and fatigue. His GI symptoms are gradually resolving. He was told that when he was in the ER his blood pressure was as low as 80 systolic and pulse rate was in the 40s. They had told me was dehydrated and gave him IV fluids. He tells me that he did take Lasix and lisinopril right along throughout his illness. He is still not on any rate slowing agents. He has not chest discomfort, shortness of breath, heart palpitations, lightheadedness, edema. He did have a mechanical fall while he was ill and sustained bruising along his ribs. [facility] Medical History CAD (coronary artery disease) A-fib NSTEMI (non-ST elevated myocardial infarction) Family History Mother High blood pressure Paroxysmal A-fib Father No problems noted. Social History Alcohol intake: never Patient Tobacco Use Status: Former Tobacco user Tobacco use type: Cigarette e-Cigarette/Vaping Use: Former Use Review of Systems Const All systems reviewed & are unremarkable except as noted in HPI and below Reports fatigue, Reports malaise and Denies weakness ENT Denies dizziness Card Denies chest pain, Denies chest pain with activity, Denies syncope, Denies rapid heart rate, Denies pedal edema, Denies edema, Denies leg edema, Denies lightheadedness, Denies palpitations, Reports dyspnea, Reports dyspnea on exertion and Denies orthopnea Resp Denies cough, Reports dyspnea and Reports dyspnea on exertion GI Denies hematochezia and Denies change in stool character Musc Denies abnormal gait, Denies muscle cramps, Denies muscle weakness, Denies numbness, Denies radiating pain into limb and Denies tingling Neuro Denies abnormal gait, Denies dizziness, Denies syncope, Denies numbness, Denies tingling and Denies weakness Endo Reports fatigue and Denies palpitations Physical Exam Vital Signs: Last Vital Signs Pulse 79 09/14/25 10:29 BP 118/60 09/14/25 10:29 BMI result Body Mass Index 37.5 Const General: cooperative, healthy appearing, comfortable and no acute distress Orientation/consciousness: patient oriented x3 Neck Neck: Yes normal visual inspection and Yes no JVD Resp Effort & Inspection: normal respiratory effort Auscultation: clear to auscultation bilaterally, no rales, no rhonchi and no wheezes Cardio Jugular venous distension: no JVD Rate: regular rate Rhythm: abnormal rhythm Heart sounds: S1 normal heart sound present, S2 normal heart sound present, no murmurs and no rubs Neuro General: patient oriented x3 Extrem General: Yes normal to inspection and No no pedal edema Psych Appearance: grossly normal Mental Status: mental status grossly normal Speech and movement: Normal speech and movement present Office Procedures EKG Details: Today, read by me, atrial fibrillation, rate 79, Qtc 481ms [id number], Complete Assessment & Plan Assessment & Plan (1) A-fib: Comment: Status post cardioversion Code(s): I48.91 - Unspecified atrial fibrillation Category: Medical Plan: Newer atrial fibrillation with cardioversion 11/09/24. He converted to sinus bradycardia and metoprolol was stopped. Holter monitor done 01/23/2025 for 3 days shows sinus rhythm with average heart rate 53 beats per minute, frequent sinus bradycardia with heart rate less than 60, 82% of the time. He did not have known atrial fibrillation until EKG today confirming AFib, rate 79. He is experiencing fatigue and malaise which could be from his recent illness. Will check a Holter monitor to see if AFib is paroxysmal and to assess rate control. He remains off all rate slowing agents. He may need antiarrhythmic for rhythm control. Continue Eliquis. Cardiology follow-up 3 months (2) NSTEMI (non-ST elevated myocardial infarction): Code(s): I21.4 - Non-ST elevation (NSTEMI) myocardial infarction Category: Medical Plan: NSTEMI 09/23/2024. Symptoms of chest heaviness, shortness of breath, bilateral arm numbness, discomfort in his neck and nausea. Cardiac catheter[place] [facility] [place] showed severe ostial right PDA stenosis, EDINSON placed, minimal disease elsewhere. An exercise stress test done 12/14/2024 showed no EKG changes of ischemia at achieved workload. An echocardiogram done 12/14/2024 showed EF 68%, moderate asymmetric septal hypertrophy and grade 2 diastolic dysfunction. Currently no reports of anginal symptoms. He has been on Plavix for 1 year, will stop at this time. He remains on Eliquis. Continue high-dose atorvastatin with ideal LDL goal less than 70. He is due for a fasting lipid profile, Lft - I gave him lab slips for these tests last visit. Signs and symptoms of angina reviewed with him. (3) Sinus bradycardia: Code(s): R00.1 - Bradycardia, unspecified Category: Medical Plan: Sinus bradycardia post cardioversion as above. Holter shows frequent sinus bradycardia. He exercises routinely including cardio and likely has good cardiac tone. Continue to avoid rate slowing medications. (4) CAD (coronary artery disease): Comment: Cardiac catheterization 09/23/2024 shows mid LAD 20% stenosis, proximal LAD 20% stenosis, proximal circumflex 15% stenosis, right PDA ostial 90% stenosis, proximal RCA 15% stenosis, EDINSON to the right PDA. Code(s): I25.10 - Atherosclerotic heart disease of [place] coronary artery without angina pectoris Category: Medical Plan: As above (5) Hyperlipidemia: Code(s): E78.5 - Hyperlipidemia, unspecified Category: Medical Plan: [place] LDL goal less than 70. Fasting send LFT pending. Continue high-dose atorvastatin. Plan I informed the patient that the EKG performed today showed atrial fibrillation. I explained that this could be a temporary consequence of the severe illness the patient recently experienced, and we will have to see if it resolves as the patient recovers. I outlined the plan to wait about two weeks and then have the patient wear a 3-day Holter monitor to further assess the heart's rhythm. We discussed that if the atrial fibrillation persists, our goal would be rhythm control, likely involving a new antiarrhythmic medication and another cardioversion procedure, which would be scheduled after the holidays. I reviewed the patient's medications and advised that clopidogrel can be stopped since it has been a year since the stent placement. I also instructed the patient to discontinue aspirin, as it is not needed while taking Eliquis. Regarding the recent hospitalization for dehydration, I educated the patient to stop taking the diuretic (Lasix) during any future episodes of significant vomiting or diarrhea. I acknowledged the patient's significant fatigue and explained that while it is most likely due to recovering from the prolonged illness, it could also be a symptom of the atrial fibrillation. I advised the patient to listen to the body and allow for adequate recovery time before resuming strenuous activities. Orders: Orders ECG 3 day holter monitor 2 Weeks I48.91 - Unspecified atrial fibrillation Medications: Discontinued clopidogrel Discontinued Reason: Doctor's Order 75 mg PO DAILY 90 tabs 3RF Patient Instructions: - You can now stop taking your clopidogrel (Plavix) medication. - You should also stop taking aspirin. Continue to take your Eliquis as prescribed. - If you ever have another episode of severe vomiting or diarrhea, stop taking your water pill (Lasix) until you feel better to avoid dehydration. - We will arrange for you to wear a heart monitor for three days in about two weeks to check your heart's rhythm. - It is important to rest and recover from your recent illness. Listen to your body and do not push yourself to exercise until you feel you have regained your strength. Patient was informed and verbally consented to the use of an ambient scribe for clinic note documentation during this visit. Visit time spent on chart review, interview, assessment, orders, documentation. Coding Level of Care Code Est Pt Level 4 (12302) Complex EM visit Add On G2211 Diagnoses A-fib I48.91 NSTEMI (non-ST elevated myocardial infarction) I21.4 Sinus bradycardia R00.1 CAD (coronary artery disease) I25.10 Hyperlipidemia E78.5 CPT Codes EKG - CPT: [id number], Complete ([id number]) Time Spent (min) 28
[2025-09-14 10:29] VITALS: BP 118/60; PULSE 79; BMI 37.5
== END 2025-09-14 11:18 | disposition home or self-care (01) ==
LOC: HO.HCS 10:12
PROVIDERS: Visit Provider Nurse Practitioner Family
DX: I48.91 Unspecified atrial fibrillation (principal); I21.4 Non-ST elevation (NSTEMI) myocardial infarction; R00.1 Bradycardia, unspecified; I25.10 Atherosclerotic heart disease of native coronary artery without angina pectoris; E78.5 Hyperlipidemia, unspecified
CPT/HCPCS: 93010; 99214; G2211

== ENCOUNTER → 2025-09-14 10:12 | Outpatient (BNVA) | payer OTHER, SELFPAY | PROVIDERS: Visit Provider Nurse Practitioner Family | DX: I25.10 Atherosclerotic heart disease of native coronary artery without angina pectoris (principal) | CPT/HCPCS: 93005 ==

== ENCOUNTER → 2025-09-28 09:19 | Outpatient (REF) | payer OTHER, SELFPAY | LOC: HO.CARD 09:19 | PROVIDERS: Visit Provider Nurse Practitioner Family | DX: I48.91 Unspecified atrial fibrillation (principal) | CPT/HCPCS: 93242 ==

== ENCOUNTER → 2025-09-28 09:22 | Outpatient (BNV) | payer OTHER, SELFPAY | PROVIDERS: Visit Provider Internal Medicine Cardiovascular Disease | DX: I48.91 Unspecified atrial fibrillation (principal); I49.3 Ventricular premature depolarization | CPT/HCPCS: 93244 ==